=== PATIENT | male | born 1970 | race Caucasian/White ===

== ENCOUNTER 2017-02-10 19:45 | Emergency (ER) | payer BC ==
[~2017-02-10] VITALS: Ht 188 cm; Wt 98.0 kg
[~2017-02-10 19:45] MED LIST: ATOR10TA88 PO; CALCTAB5 PO; GLUCTAB7 PO; OMEG10007 PO; PREG200C PO; TRAM-10 PO
[2017-02-10 19:50] VITALS: TEMP 37; Ht 188 cm; Wt 98.0 kg
[2017-02-10] MEDS ORDERED: PREG1CAP70 PO (20:22)
[2017-02-10] MEDS ORDERED: CALCTAB7 PO (20:22)
[2017-02-10] MEDS ORDERED: DULO-24 PO (20:22)
--- NOTE | 2017-02-10 20:57 | DIAGNOSTIC IMAGING REPORT ---
LEFT FINGER(S) MIN 2 VIEWS ROUTINE CLINICAL HISTORY: left 3rd finger trauma COMPARISON: None. DISCUSSION: Comminuted fracture mid and distal tuft left third finger distal phalanx. No evidence dislocation. Localized soft tissue edema IMPRESSION: Comminuted fracture distal phalanx left third finger. No evidence dislocation. Electronically signed by: Michele Plata M.D. 02/10/2017 8:56 PM Dictated Date/Time: 02/10/2017 8:55 PM
[2017-02-10] MEDS ORDERED: DIPHTHERIA/TETANUS/PERTUSSIS 0.5 ML SYR/VIAL IM. ONE (21:00)
[2017-02-10] MEDS ORDERED: XYLOCAINE 1%/SOD BICARB 20 ML VIAL INFIL ONE (21:27)
[2017-02-10] MEDS ORDERED: CEPHALEXIN 500MG HOME PACK 1 EA BTL PO ONE (22:00)
[2017-02-10] MEDS ORDERED: CEPH500C2 PO (23:02)
[2017-02-10 23:16] VITALS: BP 123/79; PULSE 55; O2SAT 95
--- NOTE | 2017-02-11 05:52 | EMERGENCY ROOM VISIT NOTE ---
ED Visit Note First contact with patient: 21:52 CHIEF COMPLAINT: Finger laceration HISTORY OF PRESENT ILLNESS: This 46 yo patient presents to the emergency department after cutting the left middle finger in the striker off and injuring the nail. The bleeding has not stopped. Denies weakness or numbness of the finger. The patient has full range of motion of the fingers. The patient rates the pain as throbbing and 5/10. The patient denies any other injuries. The patient's tetanus shot is not up to date. REVIEW OF SYSTEMS: A 6 system review of systems was completed with positives and pertinent negatives listed in the HPI. ALLERGIES: Celebrex MEDICATIONS: Reviewed PMH: Chronic pain, hyperlipidemia SOCIAL HISTORY: No drug use PHYSICAL EXAM: Vital Signs: Reviewed Nurse's notes, vital signs stable. GENERAL : Pleasant male, in no acute distress, well developed, well nourished. SKIN: There is a 2.6 cm long laceration on the distal asked that of the left finger involving the nail and the nail bed . The edges gape apart with traction. There is no foreign material in the wound and it looks clean. There is bleeding. The bone is visible on clinical exam. Extension and flexion of the finger is full and strong. Full range of motion of the wrist and other fingers. Capillary refill less than 2 seconds. Normal sensation to light and sharp touch. EMERGENCY DEPARTMENT COURSE: I examined the patient. LEFT FINGER(S) MIN 2 VIEWS ROUTINE CLINICAL HISTORY: left 3rd finger trauma COMPARISON: None. DISCUSSION: Comminuted fracture mid and distal tuft left third finger distal phalanx. No evidence dislocation. Localized soft tissue edema IMPRESSION: Comminuted fracture distal phalanx left third finger. No evidence dislocation. Electronically signed by: Michele Plata M.D. Using sterile technique the wound was cleansed with Betadine. 2 ml of 1% buffered lidocaine was used to perform a digital block to anesthetize the patient. The area was sterilely draped. Once the patient was anesthetized, the wound was copiously irrigated under pressure with sterile saline. The wound was explored and there were no deep structures injured. The nail was shattered and mostly already removed. The nail was trimmed and The laceration was repaired using 8 simple interrupted 5-0 nylon sutures. The patient tolerated the procedure well. Hemostasis was achieved. The nail bed was kept open. Splint was applied and neurovascular status was rechecked after placement and is intact. The area was cleaned with sterile saline and dressed with bacitracin ointment and bandage. The patient was given a tetanus booster. Patient was advised to follow-up with the hand surgeon tomorrow or here in the ER sooner for severe pain, numbness, tingling, worsening signs or symptoms or as needed. He was started on antibiotics for open fracture. The patient was discharged home in good condition. DIAGNOSIS: Finger laceration with open fracture involving the nailbed of the left hand third finger DISCHARGE INSTRUCTIONS & TREATMENT: as above Current/Historical Medications Scheduled Atorvastatin (Lipitor), 10 MG PO DAILY Calcium Carbonate-Vitamin D W/ (Caltrate 600 Plus), 1 TAB PO DAILY Cephalexin Monohydrate (Keflex), 500 MG PO QID Duloxetine HCl (Cymbalta), 1 TAB PO DAILY Fish Oil (Ambia-3), 1 CAP PO DAILY Fghinftzfio-Tvekrzvojuh-Wpv C- (Glucosamine Chondroitin), 1 TAB PO DAILY Pregabalin (Lyrica), 150 MG PO BID Scheduled PRN Tramadol (Ultram), 100 MG PO BID PRN for Pain Allergies Coded Allergies: Celecoxib (Verified Allergy, Unknown, RASH AND HIVES ON ARMS, 02/10/17) Vital Signs Date Time Temp Pulse Resp B/P Pulse Ox O2 Delivery O2 Flow Rate FiO2 02/10/17 23:16 55 16 123/79 95 Room Air 02/10/17 19:50 37.0 62 20 144/87 98 Room Air Medications Administered Medications (Trade) Dose Ordered Sig/Janett Route Start Time Stop Time Status Last Admin Dose Admin Diphtheria/ Pertussis/Tetanus Vacc (Adacel Inj) 0.5 ml ONCE ONCE IM. 02/10/17 21:00 02/10/17 21:01 DC 02/10/17 21:06 0.5 ML Cephalexin Monohydrate (Keflex 500MG Home Pack) 1 homepack NOW ONCE PO 02/10/17 22:00 02/10/17 22:01 DC 02/10/17 22:02 1 HOMEPACK Departure Information Impression Primary Impression: Laceration of finger of left hand Additional Impressions: Nailbed laceration, finger Open fracture of finger of left hand Dispostion Home / Self-Care Condition FAIR Prescriptions Cephalexin Monohydrate (KEFLEX) 500 Mg Cap 500 MG PO QID for 9 Days, #36 CAP Prov: Rodolfo, Lexis .HALEY 02/10/17 Referrals Maikol Negron MD Forms HOME CARE DOCUMENTATION FORM, Work Instructions, Return To Work: 2 days IMPORTANT VISIT INFORMATION Patient Instructions My [facility], ED Fx Finger Open, ED Laceration All, ED Avulsion Nail Partial Additional Instructions Keep wound clean and dry. Do not allow any crusting or dried blood to accumulate on sutures. If this occurs, use a 1:1 solution of hydrogen peroxide/ water on a Q-tip to clean the wound. Use an antibiotic ointment for 3-4 days, then let wound dry. Suture removal in 10-12 days. Return sooner for any signs of infection (increasing redness, swelling, drainage). Ice and elevate for swelling and pain. Ibuprofen 600 mg and Tylenol 1000 mg every 6 hrs for pain. Keep covered when in sun until sutures removed then SPF 50 or higher for one year. Vitamin E oil if desired two weeks after suture removal for reduction of scar Cephalexin(Keflex) 500mg: Take one pill four times daily for 10 days. All antibiotics can cause diarrhea. If this occurs and you feel worse or it does not resolve in 1-2 days follow up with your doctor or return to the Emergency Department as this could be signs of serious underlying problems. Any medication can cause an allergic reaction, stop the pills immediately and return to the ER for rash, hives, breathing difficulties, or swelling. Ibuprofen(Motrin, Advil) may be used for fever or pain. Use 600mg every six hours as needed. Take with food. Avoid using more than 2400mg in a 24 hour period. Do not use 2400mg per day for more than three consecutive days without physician direction. Prolonged inappropriate use can lead to stomach upset or ulcers. This medication can be taken if you need to drive, work, or perform activities which may be dangerous when taking narcotic pain medication. (AND/OR) Acetaminophen(Tylenol) may be used for fever or pain. Use 1000mg every six hours as needed. Avoid using more than 3000mg in a 24 hour period. This medication can be taken if you need to drive, work, or perform activities which may be dangerous when taking narcotic pain medication. Rest and elevate your injury. Wear finger splint daily. Remove this when you take a shower along with the bacitracin and bandage and evaluate your wound. Dry this off after the shower and reapply bacitracin, bandage and splint as shown in the ER. Continue current medications. Return to the ER immediately for any numbness, tingling, severe pain, extreme swelling in the extremity or as needed. Call Orthopedics tomorrow to arrange follow up for your injury. Work Instructions Return To Work: 2 days Problem Qualifiers
== END 2017-02-10 23:28 | disposition home or self-care (01) ==
LOC: C.EDB 19:46 → C.EDD 23:28
DX: S61.313A Laceration without foreign body of left middle finger with damage to nail, initial encounter (principal); S62.633B Displaced fracture of distal phalanx of left middle finger, initial encounter for open fracture; W29.0XXA Contact with powered kitchen appliance, initial encounter; Z23 Encounter for immunization

== ENCOUNTER → 2018-07-18 | Outpatient (CLI) | payer OTHER ==
[~2018-07-18] MED LIST changes: +ATOR10TA82 PO; -ATOR10TA88 PO; -CALCTAB5 PO; +DULO-24 PO; -GLUCTAB7 PO; -OMEG10007 PO; +PREG1CAP70 PO; -PREG200C PO; -TRAM-10 PO
[2018-07-18 20:38] LABS: BASO % 0.5 %; BASO ABS # 0.04 K/uL (0-0.2); EOS % 2.2 %; EOS ABS # 0.18 K/uL (0-0.5); HEMATOCRIT 48.9 % (42-52); HEMOGLOBIN 16.5 g/dL (14.0-18.0); IG# 0.01 K/uL (0.00-0.02); LYMPH % 26.3 %; LYMPH ABS # 2.14 K/uL (1.2-3.4); MEAN CELL VOLUME 88.4 fL (80-100); MEAN CORPUSCULAR HEMOGLOBIN 29.8 pg (25-34); MEAN CORPUSCULAR HGB CONC 33.7 g/dl (32-36); MEAN PLATELET VOLUME 12.2 fL (7.4-10.4); MONO % 7.6 %; MONO ABS # 0.62 K/uL (0.11-0.59); NEUT % 63.3 %; NEUT ABS # 5.15 K/uL (1.4-6.5); PLATELET COUNT 155 K/uL (130-400); RED CELL DISTRIBUTION WIDTH CV 13.7 % (11.5-14.5); RED CELL DISTRIBUTION WIDTH SD 44.3 fL (36.4-46.3); WHITE BLOOD COUNT 8.14 K/uL (4.8-10.8)
== END | disposition home or self-care (01) ==
LOC: C.LAB 19:18
PROVIDERS: ATTEND Nurse Practitioner
DX: R53.83 Other fatigue (principal)

== ENCOUNTER 2021-03-27 15:08 | Observation (INO) ==
[2021-03-27] MEDS ORDERED: ONDANSETRON INJ 2 MG/ML 2 ML VIAL IV STA (15:37)
[2021-03-27] MEDS ORDERED: MoRPHine SULFATE 4 MG/ML 1 ML CARP\\VIAL IV STA ×3 (15:37→18:55)
--- NOTE | 2021-03-27 15:45 | Emergency Department Note ---
History of Present Illness General Chief complaint: Hip Pain Stated complaint: HIP PAIN, CAN'T WALK Time Seen by Provider: 03/27/21 15:20 History of Present Illness Maximum Pain Intensity: 9 This is a 51-year-old male that presents to the emergency department via private vehicle with complaints "hip pain, cannot walk". The patient notes a history of low back pain that is generally on the left side however over the past 6 to 8 weeks has been experiencing right sided gluteal pain that radiates down the right posterior lateral aspect of the right leg to the right calf region. He describes the pain as a numbness/tingling sensation in the right leg. He describes it as a numbness/tingling. He has been taking Tylenol without relief. He reached out to Dr. Mondragon and is scheduled to have an injection to the area this coming Saturday. Patient notes that this past Saturday his pain sharply increased to a point where it is now that is a 9/10. He notes he cannot ambulate even short distances without great deal of pain. The patient denies any history of spine surgeries. He has had injections at the L5 region before. Per review of past medical history does appear that on 04/06/2019 secondary to L5 radiculopathy underwent right paramedian L5-L1 intralaminar epidural steroid i njection under fluoroscopy by Dr. Mondragon. Patient denies any fevers, chills, nausea, vomiting, chest pain or shortness of breath. He does feel that there is weakness in the right leg. He denies any bowel or bladder incontinence, numbness or tingling in the genital region. No reported recent trauma or injury. Pain is worse with movement. Home Medications Medication Instructions Recorded Confirmed Type Lyrica 25 mg PO BID 03/10/19 03/10/19 History Lyrica 100 mg PO BID 03/10/19 03/10/19 History atorvastatin 10 mg PO QAM 03/10/19 03/10/19 History duloxetine [Cymbalta] 20 mg PO QAM 03/10/19 03/10/19 History oxycodone [Roxicodone] 5 mg PO Q4H #18 tab 03/27/21 Rx Allergies Allergy/AdvReac Type Severity Reaction Status Date / Time celecoxib Allergy Unknown RASH AND Verified 04/06/19 13:18 HIVES ON ARMS Past Med/Surg History Medical History Chronic back pain Degenerative disc disease Hip pain Hyperlipidemia Sleep apnea CPAP Surgical History History of arthroscopy LEFT HIP Hx of oral surgery SOMNOPLASTY S/P epidural steroid injection MULTIPLE Social History Smoking Status: Never smoker Second Hand Exposure: No; Hx Alcohol Use: No Hx Substance Use: No Preferred Language: Gambian Communication Ability: Effective Sample Maker Hand Required: No Beliefs That Will Affect Care: None Current Living Situation: Alone Feels Safe at Home: Yes Assistive Devices: CPAP and Glasses Review of Systems A total of 10 systems reviewed and were otherwise negative Physical Exam Vital Signs Vital Signs - 24 hr 03/27/21 15:16 03/27/21 17:00 03/27/21 19:46 Temperature 36.7 C Temperature Source Temporal Artery Scan Pulse Rate 74 Pulse Rate [Right Finger] 64 61 Respiratory Rate 18 20 18 Respiratory Effort / Characteristics Non-Labored Respiratory Depth Normal Blood Pressure 133/88 Blood Pressure [Right Arm] 123/77 134/89 Blood Pressure Mean 103 Blood Pressure Mean [Right Arm] 92 104 Pulse Oximetry 97 96 96 Oxygen Delivery Method Room Air Room Air Room Air Sepsis Recent Fever Within 48 Hours No Sepsis New/Unexplained Change in Mental Status No Sepsis Action Taken by Nursing No Action Required 03/27/21 21:06 Temperature Temperature Source Pulse Rate Pulse Rate [Right Finger] 69 Respiratory Rate 18 Respiratory Effort / Characteristics Respiratory Depth Blood Pressure Blood Pressure [Right Arm] 117/68 Blood Pressure Mean Blood Pressure Mean [Right Arm] 84 Pulse Oximetry 97 Oxygen Delivery Method Room Air Sepsis Recent Fever Within 48 Hours Sepsis New/Unexplained Change in Mental Status Sepsis Action Taken by Nursing VITAL SIGNS - Vital signs and nursing notes were reviewed. Stable and afebrile. GENERAL -51-year-old male appearing his stated age who is in no acute distress but appears to be in pain. Communicates well with provider and answers questions appropriately. SKIN - Without rashes. No meningeal or petechial rash. HEAD - NC/AT. EYES - PERRL with EOMI bilaterally. Sclera anicteric. Palpebral conjunctiva pink and moist with no injection noted. EARS - No deformities of external structures noted on gross examination bilaterally. NOSE - Midline and without cyanosis. No epistaxis or purulent drainage noted. MOUTH/OROPHARYNX - Without perioral cyanosis. NECK - Neck with FROM. No nuchal rigidity. LUNGS - Chest wall symmetric without accessory muscle use, intercostals retractions, or central cyanosis. Normal vesicular breath sounds CTA B/L. No wheezes, rales, or rhonchi appreciated. CARDIAC - RRR with S1/S2. No murmur, rubs, or gallops appreciated. ABDOMEN - Abdominal contour normal without pulsations or visible masses. BS normoactive all four quadrants. No tenderness, palpable masses, hepatosplenomegaly, or ascites noted. EXTREMITIES - No clubbing or peripheral cyanosis. No pretibial edema present. Ambulatory trial noted that the patient is able to stand however cannot ambulate without assistance and does seem to be unstable on the right leg. +5/5 strength noted in UE/LE bilaterally. NEUROLOGIC - Cranial nerves II through XII grossly intact. Sensory intact to lig ht touch throughout. PSYCH - A&Ox3 and cooperates fully with examiner. Pt is very pleasant and inte racts well with examiner. Course Administered Medications Discontinued Medications Dexamethasone Sodium Phosphate (DexamethasonePf 10 Mg/Ml Vial) 10 mg IV NOW ONE Stop: 03/27/21 18:03 Last Admin: 03/27/21 18:07 Dose: 10 mg Documented by: [id number] Lidocaine (Lidocaine 5% 1 Patch) 1 patch TD NOW STA Stop: 03/27/21 16:19 Last Admin: 03/27/21 17:10 Dose: 1 patch Documented by: [id number] Morphine Sulfate (Morphine Sulfate 4 Mg/Ml 1 Ml Carp\\Vial) 4 mg IV NOW STA Stop: 03/27/21 15:38 Last Admin: 03/27/21 15:59 Dose: 4 mg Documented by: [id number] Morphine Sulfate (Morphine Sulfate 4 Mg/Ml 1 Ml Carp\\Vial) 4 mg IV NOW STA Stop: 03/27/21 16:21 Last Admin: 03/27/21 17:05 Dose: 4 mg Documented by: [id number] Morphine Sulfate (Morphine Sulfate 4 Mg/Ml 1 Ml Carp\\Vial) 4 mg IV NOW STA Stop: 03/27/21 18:56 Last Admin: 03/27/21 19:24 Dose: 4 mg Documented by: [id number] Ondansetron HCl (Ondansetron Inj 2 Mg/Ml 2 Ml Vial) 4 mg IV NOW STA Stop: 03/27/21 15:38 Last Admin: 03/27/21 15:59 Dose: 4 mg Documented by: [id number] Medical Decision Making Laboratory Data Result diagrams: 03/27/21 15:50 03/27/21 15:50 Lab Results 03/27/21 03/27/21 03/27/21 Range/Units 15:50 15:50 19:25 WBC 7.82 (4.8-10.8) K/uL RBC 5.42 (4.7-6.1) M/uL Hgb 16.6 (14.0-18.0) g/dL Hct 47.7 (42-52) % MCV 88.0 (80-100) fL MCH 30.6 (25-34) pg MCHC 34.8 (32-36) g/dL RDW Std Deviation 42.2 (36.4-46.3) fL RDW Coeff of Naty 13.1 (11.5-14.5) % Plt Count 195 (130-400) K/uL MPV 12.0 H (7.4-10.4) fL Immature Gran % (Auto) 0.1 % Neut % (Auto) 70.0 % Lymph % (Auto) 20.1 % Bergen % (Auto) 8.7 % Eos % (Auto) 0.6 % Baso % (Auto) 0.5 % Neut # (Auto) 5.47 (1.4-6.5) K/uL Lymph # (Auto) 1.57 (1.2-3.4) K/uL Bergen # (Auto) 0.68 H (0.11-0.59) K/uL Eos # (Auto) 0.05 (0-0.5) K/uL Baso # (Auto) 0.04 (0-0.2) K/uL Immature Gran # (Auto) 0.01 (0.00-0.02) K/uL Sodium 143 (136-145) mmol/L Potassium 3.8 (3.5-5.1) mmol/L Chloride 110 H (98-107) mmol/L Carbon Dioxide 29 (21-32) mmol/L Anion Gap 4.0 (3-11) BUN 11 (7-18) mg/dl Creatinine 1.07 (0.6-1.4) mg/dl Est Cr Clr Drug Dosing 97.1 ml/min Est GFR ( Amer) 94.0 Est GFR (Non-Af Amer) 81.1 BUN/Creatinine Ratio 10.7 (10-20) Glucose 102 H (70-99) mg/dl Calcium 9.0 (8.5-10.1) mg/dl Total Bilirubin 0.9 (0.2-1) mg/dl AST 22 (15-37) U/L ALT 35 (12-78) U/L Alkaline Phosphatase 49 (45-117) U/L Total Protein 7.1 (6.4-8.2) gm/dl Albumin 4.1 (3.4-5.0) gm/dl Globulin 3.0 (2.5-4.0) gm/dl Albumin/Globulin Ratio 1.4 (0.9-2) COVID-19 Eval Order CovFluRsv at [facility] SARS-CoV-2 (PCR) (Negative) Influenza Type A (PCR) (Neg) Influenza Type B (PCR) (Neg) RSV (RT-PCR) (Neg) 03/27/21 Range/Units 19:25 WBC (4.8-10.8) K/uL RBC (4.7-6.1) M/uL Hgb (14.0-18.0) g/dL Hct (42-52) % MCV (80-100) fL MCH (25-34) pg MCHC (32-36) g/dL RDW Std Deviation (36.4-46.3) fL RDW Coeff of Naty (11.5-14.5) % Plt Count (130-400) K/uL MPV (7.4-10.4) fL Immature Gran % (Auto) % Neut % (Auto) % Lymph % (Auto) % Bergen % (Auto) % Eos % (Auto) % Baso % (Auto) % Neut # (Auto) (1.4-6.5) K/uL Lymph # (Auto) (1.2-3.4) K/uL Bergen # (Auto) (0.11-0.59) K/uL Eos # (Auto) (0-0.5) K/uL Baso # (Auto) (0-0.2) K/uL Immature Gran # (Auto) (0.00-0.02) K/uL Sodium (136-145) mmol/L Potassium (3.5-5.1) mmol/L Chloride (98-107) mmol/L Carbon Dioxide (21-32) mmol/L Anion Gap (3-11) BUN (7-18) mg/dl Creatinine (0.6-1.4) mg/dl Est Cr Clr Drug Dosing ml/min Est GFR ( Amer) Est GFR (Non-Af Amer) BUN/Creatinine Ratio (10-20) Glucose (70-99) mg/dl Calcium (8.5-10.1) mg/dl Total Bilirubin (0.2-1) mg/dl AST (15-37) U/L ALT (12-78) U/L Alkaline Phosphatase (45-117) U/L Total Protein (6.4-8.2) gm/dl Albumin (3.4-5.0) gm/dl Globulin (2.5-4.0) gm/dl Albumin/Globulin Ratio (0.9-2) COVID-19 Eval Order SARS-CoV-2 (PCR) NEGATIVE (Negative) Influenza Type A (PCR) Negative (Neg) Influenza Type B (PCR) Negative (Neg) RSV (RT-PCR) Negative (Neg) Imaging Data Radiologist's Impression: Lumbar Spine MRI 03/27/21 15:37 MRI OF THE LUMBAR SPINE WITHOUT IV CONTRAST CLINICAL HISTORY: Chronic low back pain. Right lower extremity radiculopathy. COMPARISON STUDY: Radiographs of the lumbar spine dated 04/23/2012. MRI of the lumbar spine dated 02/05/2014. TECHNIQUE: MRI of the lumbar spine is performed utilizing various T1 and T2-we ighted sequences in the axial and sagittal planes. IV contrast was not administered for this examination. FINDINGS: Lumbar spine: Vertebral body height and alignment are maintained throughout the lumbar spine. There is straightening of the lumbar lordosis. The transverse and spinous processes appear intact. There is no evidence of spondylolysis. Small anterior and lateral marginal osteophytes are seen throughout. No destructive bony lesion is seen. Chronic degenerative endplate change and endplate edema are noted at L4-L5. Intervertebral discs: Degenerative disc desiccation and loss of height are noted at L4-L5 and L5-S1. Loss of height is moderate to severe at L4-L5. The remaining discs are normal in height and signal intensity. Spinal cord: The visualized spinal cord is normal in morphology and signal intensity. The conus medullaris terminates at the level of L1. The nerve roots of the cauda equina are normal in morphology. L1-L2: Unremarkable. L2-L3: Unremarkable. L3-L4: Unremarkable. L4-L5: There is broad-based posterior disc bulge. No acquired compromise of the central canal is identified. There is bilateral subarticular stenosis, left greater than right. This may abut the exiting bilateral L4 nerve roots as well as the transiting bilateral nerve roots. In conjunction with facet arthropathy, there is mild bilateral neural foraminal stenosis. L5-S1: There is a posterior disc herniation eccentric to the right, best seen on axial image #23 and sagittal image #8. This impinges on the transiting right- sided nerve roots as well as the right anterior aspect of the thecal sac. There is bilateral subarticular stenosis, right greater than left. This may abut the exiting bilateral L5 nerve roots. Facet arthropathy contributes to mild bilatera l neural foraminal stenosis. Sacrum: The visualized sacrum is normal in morphology and signal intensity. Soft tissues: The paraspinous soft tissues are normal as visualized. The imaged retroperitoneal structures are grossly unremarkable but incompletely assessed. IMPRESSION: 1. There is a disc herniation eccentric to the right at L5-S1. This impinges on the transiting right-sided nerve roots, and also mildly effaces the right anterior aspect of the thecal sac. 2. Moderate spondylotic change at L4-L5. See above discussion for detailed level by level analysis. 3. Degenerative disc disease as above with significant endplate edema at L4-L5. 4. No destructive bony lesion is identified. Dictated: 03/27/2021 5:03 PM Transcribed: 03/27/2021 5:22 PM Zoila [id number] [email or web address] Electronically signed by: Elias Lyon M.D. 03/27/2021 5:24 PM [facility] Narrative Patient was seen and evaluated as above in room D06. Review was performed of nursing notes and vital signs. I did review pertinent previous visits and patient history. After obtaining a thorough history and physical examination the above work up was performed. Patient presents to us today with right posterior lateral gluteal discomfort that extends into the right posterior lateral calf region. It is worse with movement. Patient has an established history of back pain and has received steroid injections before. The patient does not have any tenderness overlying the right greater trochanter or at the hip regions. Presentation appears consistent without a right-sided lumbar radiculopathy. No evidence of cauda equina syndrome. An ambulatory trial was performed on arrival as I was examining the patient and he is not able to ambulate without assistance. With the patient's symptoms and physical examination as outlined above benefit versus risk of work-up and imaging was discussed. Through shared decision making we agreed to proceed with an MRI of the L-spine given his inability to ambulate and numbness/tingling in the right leg. In addition, the patient has found little relief with OTC pain medication and therefore will be given IV pain meds here while awaiting imaging. MRI results as above. This does clinically correlate with the patient's exam findings and history. I did feel that the patient would benefit from outpatient follow-up with a photo lab specialist. I discussed options with the patient and we agreed upon an IV dexamethasone dose here, and then discharged with p.o. oxycodone at the pharmacy. I was then called back to the room by the nurse as the patient was having trouble ambulating. Upon return to the room the patient voiced concern over being able to ambulate. I did have the patient attempt to ambulate upon reassessment and he did have a great deal of pain upon attempting to do so. We discussed options such as continuing with discharge and utilizing the pain meds at the pharmacy however the person accompanying the patient in the exam room also voiced concern over being able to help the patient ambulate at home. Patient preferred inpatient management which I believe is reasonable. I believe this is reasonable given his ambulatory dysfunction and for pain control . Case discussed with the hospitalist. Please refer to further documentation regarding his stay. Baseline labs were also obtained. No leukocytosis or anemia. No emergent metabolic disturbance. Covid testing pending. At no point did the patient exhibit any sign or symptom consistent with that of cauda equina syndrome. Please refer to further documentation regarding the patient's stay. GCS: 15 In the evaluation and treatment of this patient the following differential diagnosis entertained: Fracture, dislocation, subluxation, cauda equina syndrome, AAA, diverticulitis, appendicitis, torsion, osteomyelitis, piriformis syndrome, strain, sprain, among others. Impression & Plan Acute right lumbar radiculopathy, Ambulatory dysfunction, Intractable back pain Discharge Plan Visit Data Chief Complaint: Hip Pain Stated Complaint: HIP PAIN, CAN'T WALK ED Provider: Daquan Casper ED Midlevel Provider: Caesar Bell Discharge Problem: Acute right lumbar radiculopathy, Ambulatory dysfunction, Intractable back pain Patient Disposition: Admitted As Inpatient Condition: Good Forms Stand Alone Forms: [facility], Virtual Emergency Department, Important Visit Information Prescriptions Prescriptions: New oxycodone [Roxicodone] 5 mg tablet 5 mg PO Q4H Qty: 18 RF: 0 No Action atorvastatin 10 mg Tablet 10 mg PO QAM RF: 0 Lyrica 25 mg Capsule 25 mg PO BID RF: 0 Lyrica 100 mg Capsule 100 mg PO BID RF: 0 duloxetine [Cymbalta] 20 mg Capsule,Delayed Release(Dr/Ec) 20 mg PO QAM RF: 0 Referrals Referrals: Denisha Peoples MD [Physician] - Hawa Whitmore PA-C [Primary Care Provider] -
[2021-03-27] MEDS ORDERED: LIDOCAINE 5% 1 PATCH TD STA (16:18)
--- NOTE | 2021-03-27 17:25 | Magnetic Resonance Report ---
MRI OF THE LUMBAR SPINE WITHOUT IV CONTRAST CLINICAL HISTORY: Chronic low back pain. Right lower extremity radiculopathy. COMPARISON STUDY: Radiographs of the lumbar spine dated 04/23/2012. MRI of the lumbar spine dated 02/05. TECHNIQUE: MRI of the lumbar spine is performed utilizing various T1 and T2-weighted sequences in the axial and sagittal planes. IV contrast was not administered for this examination. FINDINGS: Lumbar spine: Vertebral body height and alignment are maintained throughout the lumbar spine. There i s straightening of the lumbar lordosis. The transverse and spinous processes appear intact. There is no evidence of spondylolysis. Small anterior and lateral marginal osteophytes are seen throughout. No destructive bony lesion is seen. Chronic degenerative endplate change and endplate edema are noted a t L4-L5. Intervertebral discs: Degenerative disc desiccation and loss of height are noted at L4-L5 and L5-S1. Loss of height is moderate to severe at L4-L5. The remaining discs are normal in height and signal in tensity. Spinal cord: The visualized spinal cord is normal in morphology and signal intensity. The conus medul neptali terminates at the level of L1. The nerve roots of the cauda equina are normal in morphology. L1-L2: Unremarkable. L2-L3: Unremarkable. L3-L4: Unremarkable. L4-L5: There is broad-based posterior disc bulge. No acquired compromise of the central canal is iden tified. There is bilateral subarticular stenosis, left greater than right. This may abut the exiting bilateral L4 nerve roots as well as the transiting bilateral nerve roots. In conjunction with facet a rthropathy, there is mild bilateral neural foraminal stenosis. L5-S1: There is a posterior disc herniation eccentric to the right, best seen on axial image #23 and sagittal image #8. This impinges on the transiting right-sided nerve roots as well as the right anter ior aspect of the thecal sac. There is bilateral subarticular stenosis, right greater than left. This may abut the exiting bilateral L5 nerve roots. Facet arthropathy contributes to mild bilateral neura l foraminal stenosis. Sacrum: The visualized sacrum is normal in morphology and signal intensity. Soft tissues: The paraspinous soft tissues are normal as visualized. The imaged retroperitoneal struc tures are grossly unremarkable but incompletely assessed. IMPRESSION: 1. There is a disc herniation eccentric to the right at L5-S1. This impinges on the transiting right- sided nerve roots, and also mildly effaces the right anterior aspect of the thecal sac. 2. Moderate spondylotic change at L4-L5. See above discussion for detailed level by level analysis. 3. Degenerative disc disease as above with significant endplate edema at L4-L5. 4. No destructive bony lesion is identified. Dictated: 03/27/2021 5:03 PM Transcribed: 03/27/2021 5:22 PM Zoila [id number] [facility] Electronically signed by: Elias Lyon M.D. 03/27/2021 5:24 PM
[2021-03-27] MEDS ORDERED: dexAMETHasone**PF** 10 MG/ML VIAL IV ONE (18:02)
[2021-03-27 19:01] LABS: Basophils # (auto) 0.04 K/uL (0-0.2); Basophils % (auto) 0.5 %; Eosinophils # (auto) 0.05 K/uL (0-0.5); Eosinophils % (auto) 0.6 %; Hematocrit (blood only) 47.7 % (42-52); Hemoglobin 16.6 g/dL (14.0-18.0); Immature Granulocytes # (auto) 0.01 K/uL (0.00-0.02); Immature Granulocytes % (auto) 0.1 %; Lymphocytes # (auto) 1.57 K/uL (1.2-3.4); Lymphocytes % (auto) 20.1 %; Mean Corpuscular Hemoglobin 30.6 pg (25-34); Mean Corpuscular Hgb Conc 34.8 g/dL (32-36); Monocytes # (auto) 0.68 K/uL (0.11-0.59); Monocytes % (auto) 8.7 %; Neutrophils # (auto) 5.47 K/uL (1.4-6.5); Platelet Count 195 K/uL (130-400); RDW Coefficient of Variation 13.1 % (11.5-14.5); RDW Standard Deviation 42.2 fL (36.4-46.3); Red Blood Count 5.42 M/uL (4.7-6.1); White Blood Count 7.82 K/uL (4.8-10.8)
[2021-03-27 19:08] LABS: Albumin Level 4.1 gm/dl (3.4-5.0); BUN Creatinine Ratio 10.7 (10-20); Creatinine Clr Calc Pharmacy 97.1 ml/min; Est GFR (Non-African American) 81.1; Potassium 3.8 mmol/L (3.5-5.1)
[2021-03-27 19:11] LABS: Albumin Globulin Ratio 1.4 (0.9-2); Bilirubin,Total 0.9 mg/dl (0.2-1); Total Protein 7.1 gm/dl (6.4-8.2)
[2021-03-27] MEDS ORDERED: PREGABALIN 100 MG CAP PO STA (20:29)
--- NOTE | 2021-03-27 20:30 | History & Physical Report ---
Date of Service March 27, 2021 Assessment & Plan (1) Acute right lumbar radiculopathy: 51yo C male with 6-8 weeks of intermittent right buttock pain with acute worsening on 03/25/21, now in severe discomfort, unable to ambulate due to pain. Patient is neurologically intact, no cauda/equina/bowel or bladder involvement. MRI with disc herniation at L5-S1 impinging on right sided nerve roots. -Observation to medical -Patient given Dexamethasone 10mg IV in ER - will continue with PO prednisone 6 0mg -Tylenol q 8 hours. Will avoid NSAIDs due to prior allergy to Celecoxib. Patient states that topical Lidoderm, Voltaren do not work for him -Continue Cymbalta and Lyrica -Percocet 5mg po q 4 hours -Consider Pain Management consultation for epidural injection -Fall precautions -PT/OT evaluation Present on Admission?: Yes (2) Ambulatory dysfunction: As above, secondary to acute lumbar radiculopathy -Prednisone, Tylenol, Percocet as above -PT/OT evaluation Present on Admission?: Yes (3) Hyperlipidemia: Chronic -Continue Crestor Present on Admission?: Yes (4) Sleep apnea: Chronic -CPAP 6 cm H2O. Patient may use his own device F/E/N - Heplock. Electrolytes WNL. Regular diet as tolerated Ppx - Low risk for DVT Code - Full Present on Admission?: Yes History of Present Illness Chief Complaint: Back pain, inability to walk Primary Care Provider: Hawa Whitmore PA-C Jl Amado is a 51yo male presenting with acute back pain. Patient has a longstanding history of chronic back pain. His chronic pain is typically located on the left which is managed well with Cymbalta, Lyrica. He has had acute L5-S1 radiculopathy in the past requiring occasional epidural steroid injections (last on record 04/06/[address] Slim Mondragon and 05/26/18 prior to that). Patient is scheduled to have another steroid injection performed on by Dr. Langford. He reports good pain control following steroid injections. Patient noticed intermittent pain the right buttock in December. This pain acutely worsened on 03/25/21 with radiation down posterior lateral portion of right thigh to leg. +Numbness/tingling sensation in the right leg as well. He took some Tylenol with no relief. Yesterday the pain was "unbearable" to the point that he was unable to ambulate. He was unable to get comfortable at night, couldn't sleep or move. He contacted Dr. Mondragon's office and was instructed to seek emergency care if his pain could not be controlled with Tylenol. Upon arrival to the ER he was administered Dexamethasone as well as Morphine 4mg IV x 3 doses with minimal improvement in his discomfort. During his ambulatory trial in the ER he was unable to bear weight or walk. 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 Patient denies bowel or bladder incontinence. ER Course: Dexamethasone, Lidoderm, Morphine, Zofran Allergies Allergy/AdvReac Type Severity Reaction Status Date / Time celecoxib Allergy Unknown RASH AND Verified 04/06/19 13:18 HIVES ON ARMS Home Medications Medication Instructions Recorded Confirmed Type Lyrica 25 mg PO BID 03/10/19 03/10/19 History atorvastatin 10 mg PO QAM 03/10/19 03/27/21 History duloxetine [Cymbalta] 20 mg PO QAM 03/10/19 03/27/21 History pregabalin [Lyrica] 100 mg PO BID 03/10/19 03/27/21 History oxycodone [Roxicodone] 5 mg PO Q4H #18 tab 03/27/21 Rx Past Med/Surg History Medical History Chronic back pain Degenerative disc disease Hip pain Hyperlipidemia Sleep apnea CPAP Surgical History History of arthroscopy LEFT HIP Hx of oral surgery SOMNOPLASTY S/P epidural steroid injection MULTIPLE Social History Smoking Status: Never smoker Second Hand Exposure: No; Do You Dip or Chew Tobacco: No; Hx Alcohol Use: No Hx Substance Use: No Preferred Language: Welsh Communication Ability: Effective Clinical Technologist Required: No Beliefs That Will Affect Care: None Current Living Situation: Alone Feels Safe at Home: Yes Safety Concerns: Feels Safe At This Time Assistive Devices: CPAP Assistive Devices Comment: Back pain Review of Systems Review of Systems: All systems reviewed & are unremarkable except as noted in HPI & below Physical Exam Physical Exam: General: patient resting comfortably in supine position, NAD, non-toxic in appearance, AA&O x 4 Skin: warm, dry, intact, no rashes or lesions HEENT: NC/AT, PERRL, EOMI, anicteric sclera, conjunctiva without injection, external ear normal to inspection and nontender, nares patent, moist mucus membranes, dentition intact, no oropharyngeal lesions, neck supple, trachea midline, no LAD, no thyromegaly, no JVD Heart: +S1/S2, regular, no m/r/g Lungs: equal air entry bilaterally, no rales/rhonchi/wheezes Abd: +BS, soft, NT/ND, no masses/organomegaly/ascites Ext: warm, 2+ pulses in UE/LE bilaterally, no clubbing/cyanosis or edema Neuro: nonfocal, patient AA&O x 4, speech intact, no facial droop, moving all extremities on command with equal strength 5/5, LE reflexes intact, +straight leg test on right Results & Data Results & Data ([facility]) Vital Signs (Past 12 Hours) Vital Signs Temp Pulse Pulse Resp BP BP Pulse Ox 03/27/21 19:46 61 18 134/89 96 03/27/21 17:00 64 20 123/77 96 03/27/21 15:16 36.7 C 74 18 133/88 97 Laboratory Results Lab Results 03/27/21 03/27/21 03/27/21 Range/Units 15:50 15:50 19:25 WBC 7.82 (4.8-10.8) K/uL RBC 5.42 (4.7-6.1) M/uL Hgb 16.6 (14.0-18.0) g/dL Hct 47.7 (42-52) % MCV 88.0 (80-100) fL MCH 30.6 (25-34) pg MCHC 34.8 (32-36) g/dL RDW Std Deviation 42.2 (36.4-46.3) fL RDW Coeff of Naty 13.1 (11.5-14.5) % Plt Count 195 (130-400) K/uL MPV 12.0 H (7.4-10.4) fL Immature Gran % (Auto) 0.1 % Neut % (Auto) 70.0 % Lymph % (Auto) 20.1 % Boone % (Auto) 8.7 % Eos % (Auto) 0.6 % Baso % (Auto) 0.5 % Neut # (Auto) 5.47 (1.4-6.5) K/uL Lymph # (Auto) 1.57 (1.2-3.4) K/uL Boone # (Auto) 0.68 H (0.11-0.59) K/uL Eos # (Auto) 0.05 (0-0.5) K/uL Baso # (Auto) 0.04 (0-0.2) K/uL Immature Gran # (Auto) 0.01 (0.00-0.02) K/uL Sodium 143 (136-145) mmol/L Potassium 3.8 (3.5-5.1) mmol/L Chloride 110 H (98-107) mmol/L Carbon Dioxide 29 (21-32) mmol/L Anion Gap 4.0 (3-11) BUN 11 (7-18) mg/dl Creatinine 1.07 (0.6-1.4) mg/dl Est Cr Clr Drug Dosing 97.1 ml/min Est GFR ( Amer) 94.0 Est GFR (Non-Af Amer) 81.1 BUN/Creatinine Ratio 10.7 (10-20) Glucose 102 H (70-99) mg/dl Calcium 9.0 (8.5-10.1) mg/dl Total Bilirubin 0.9 (0.2-1) mg/dl AST 22 (15-37) U/L ALT 35 (12-78) U/L Alkaline Phosphatase 49 (45-117) U/L Total Protein 7.1 (6.4-8.2) gm/dl Albumin 4.1 (3.4-5.0) gm/dl Globulin 3.0 (2.5-4.0) gm/dl Albumin/Globulin Ratio 1.4 (0.9-2) COVID-19 Eval Order CovFluRsv at [facility] SARS-CoV-2 (PCR) (Negative) Influenza Type A (PCR) (Neg) Influenza Type B (PCR) (Neg) RSV (RT-PCR) (Neg) 03/27/21 Range/Units 19:25 WBC (4.8-10.8) K/uL RBC (4.7-6.1) M/uL Hgb (14.0-18.0) g/dL Hct (42-52) % MCV (80-100) fL MCH (25-34) pg MCHC (32-36) g/dL RDW Std Deviation (36.4-46.3) fL RDW Coeff of Naty (11.5-14.5) % Plt Count (130-400) K/uL MPV (7.4-10.4) fL Immature Gran % (Auto) % Neut % (Auto) % Lymph % (Auto) % Boone % (Auto) % Eos % (Auto) % Baso % (Auto) % Neut # (Auto) (1.4-6.5) K/uL Lymph # (Auto) (1.2-3.4) K/uL Boone # (Auto) (0.11-0.59) K/uL Eos # (Auto) (0-0.5) K/uL Baso # (Auto) (0-0.2) K/uL Immature Gran # (Auto) (0.00-0.02) K/uL Sodium (136-145) mmol/L Potassium (3.5-5.1) mmol/L Chloride (98-107) mmol/L Carbon Dioxide (21-32) mmol/L Anion Gap (3-11) BUN (7-18) mg/dl Creatinine (0.6-1.4) mg/dl Est Cr Clr Drug Dosing ml/min Est GFR ( Amer) Est GFR (Non-Af Amer) BUN/Creatinine Ratio (10-20) Glucose (70-99) mg/dl Calcium (8.5-10.1) mg/dl Total Bilirubin (0.2-1) mg/dl AST (15-37) U/L ALT (12-78) U/L Alkaline Phosphatase (45-117) U/L Total Protein (6.4-8.2) gm/dl Albumin (3.4-5.0) gm/dl Globulin (2.5-4.0) gm/dl Albumin/Globulin Ratio (0.9-2) COVID-19 Eval Order SARS-CoV-2 (PCR) NEGATIVE (Negative) Influenza Type A (PCR) Negative (Neg) Influenza Type B (PCR) Negative (Neg) RSV (RT-PCR) Negative (Neg) Diagnostic Findings MRI OF THE LUMBAR SPINE WITHOUT IV CONTRAST CLINICAL HISTORY: Chronic low back pain. Right lower extremity radiculopathy. COMPARISON STUDY: Radiographs of the lumbar spine dated 04/23/2012. MRI of the lumbar spine dated 02/05/2014. TECHNIQUE: MRI of the lumbar spine is performed utilizing various T1 and T2- weighted sequences in the axial and sagittal planes. IV contrast was not administered for this examination. FINDINGS: Lumbar spine: Vertebral body height and alignment are maintained throughout the lumbar spine. There is straightening of the lumbar lordosis. The transverse and spinous processes appear intact. There is no evidence of spondylolysis. Small anterior and lateral marginal osteophytes are seen throughout. No destructive bony lesion is seen. Chronic degenerative endplate change and endplate edema are noted at L4-L5. Intervertebral discs: Degenerative disc desiccation and loss of height are noted at L4-L5 and L5-S1. Loss of height is moderate to severe at L4-L5. The remaining discs are normal in height and signal intensity. Spinal cord: The visualized spinal cord is normal in morphology and signal intensity. The conus medullaris terminates at the level of L1. The nerve roots of the cauda equina are normal in morphology. L1-L2: Unremarkable. L2-L3: Unremarkable. L3-L4: Unremarkable. L4-L5: There is broad-based posterior disc bulge. No acquired compromise of the central canal is identified. There is bilateral subarticular stenosis, left greater than right. This may abut the exiting bilateral L4 nerve roots as well as the transiting bilateral nerve roots. In conjunction with facet arthropathy, there is mild bilateral neural foraminal stenosis. L5-S1: There is a posterior disc herniation eccentric to the right, best seen on axial image #23 and sagittal image #8. This impinges on the transiting right- sided nerve roots as well as the right anterior aspect of the thecal sac. There is bilateral subarticular stenosis, right greater than left. This may abut the exiting bilateral L5 nerve roots. Facet arthropathy contributes to mild bilateral neural foraminal stenosis. Sacrum: The visualized sacrum is normal in morphology and signal intensity. Soft tissues: The paraspinous soft tissues are normal as visualized. The imaged retroperitoneal structures are grossly unremarkable but incompletely assessed. IMPRESSION: 1. There is a disc herniation eccentric to the right at L5-S1. This impinges on the transiting right-sided nerve roots, and also mildly effaces the right anterior aspect of the thecal sac. 2. Moderate spondylotic change at L4-L5. See above discussion for detailed level by level analysis. 3. Degenerative disc disease as above with significant endplate edema at L4-L5. 4. No destructive bony lesion is identified. Dictated: 03/27/2021 5:03 PM Transcribed: 03/27/2021 5:22 PM Zoila [id number] [facility] Electronically signed by: Elias Lyon M.D. 03/27/2021 5:24 PM Dictated: 03/27/21 1703Transcribed: 03/27/21 1722 PG Care Time/CCT Total # of Minutes Spent Total Time Spent with Patient: Total time spent is greater than 50% in coordination of care (as documented) at patient's floor/unit and/or counseling patient: Coding Level of Care Code 02063 OBS Care - Level 3 Diagnoses Acute right lumbar radiculopathy M54.16 Ambulatory dysfunction R26.2 Hyperlipidemia E78.5 Hyperlipidemia type: unspecified Sleep apnea G47.30 Sleep apnea type: unspecified type (1) Hyperlipidemia Hyperlipidemia type: unspecified Qualified Code(s): E78.5 - Hyperlipidemia, unspecified (2) Sleep apnea Sleep apnea type: unspecified type Qualified Code(s): G47.30 - Sleep apnea, unspecified
[2021-03-27 20:34] LABS: Influenza A virus by PCR Negative (Neg); Influenza B virus by PCR Negative (Neg); RSV by PCR Negative (Neg); SARS CoV2 RNA(COVID-19) InHosp NEGATIVE (Negative)
[2021-03-27] MEDS ORDERED: DICLOFENAC SOD 1% GEL 100 GM TUBE EXT SCH (22:00)
[2021-03-27] MEDS: oxyCODONE HCL IR 5 MG TAB (IMMEDIATE RELEASE) PO PRN (23:08)
[2021-03-27] MEDS: PREGABALIN 100 MG CAP PO SCH (23:09)
[2021-03-27] MEDS: ACETAMINOPHEN 500 MG TAB PO SCH (23:09)
[2021-03-27] MEDS ORDERED: POLYETHYLENE (MIRALAX) 17 GM PACK PO PRN (23:54)
[2021-03-27] MEDS ORDERED: DOCUSATE SODIUM 100 MG CAP PO PRN (23:54)
[2021-03-28] MEDS ORDERED: MoRPHine SULFATE 2 MG/ML CARP IV STA (00:14)
[2021-03-28] MEDS: oxyCODONE HCL IR 5 MG TAB (IMMEDIATE RELEASE) PO PRN ×5 (05:46→23:24)
[2021-03-28] MEDS: ACETAMINOPHEN 500 MG TAB PO SCH ×3 (05:46→22:06)
[2021-03-28] MEDS: PREGABALIN 100 MG CAP PO SCH ×2 (08:17→20:55)
[2021-03-28] MEDS: LIDOCAINE 5% 1 PATCH TD SCH (08:21)
[2021-03-28] MEDS: predniSONE 20 MG TAB PO SCH (08:23)
[2021-03-28] MEDS: ATORVASTATIN 10 MG TAB PO SCH (08:23)
[2021-03-28] MEDS: DULoxetine HCL 20 MG CAP PO SCH (08:23)
[2021-03-28] MEDS ORDERED: predniSONE 20 MG TAB PO SCH (09:00)
[2021-03-28] MEDS ORDERED: PREGABALIN 100 MG CAP PO SCH (09:00)
--- NOTE | 2021-03-28 09:16 | Hospitalist Progress Note ---
Date of Service March 28, 2021 Assessment & Plan (1) Acute right lumbar radiculopathy: 51yo C male with 6-8 weeks of intermittent right buttock pain with acute worsening on 03/25/21, now in severe discomfort, unable to ambulate due to pain. Patient is neurologically intact, no cauda/equina/bowel or bladder involvement. MRI lumbar spine 03/27/21 IMPRESSION: 1. There is a disc herniation eccentric to the right at L5-S1. This impinges on the transiting right-sided nerve roots, and also mildly effaces the right anterior aspect of the thecal sac. 2. Moderate spondylotic change at L4-L5. See above discussion for detailed level by level analysis. 3. Degenerative disc disease as above with significant endplate edema at L4- L5. 4. No destructive bony lesion is identified. -Patient given Dexamethasone 10mg IV in ER - will continue with PO prednisone 60mg -Tylenol q 8 hours. Will avoid NSAIDs due to prior allergy to Celecoxib. Patient states that topical Lidoderm, Voltaren do not work for him -Continue Cymbalta and Lyrica -Percocet 5mg po q 4 hours - I spoke to the patient's pain management physician Dr. Slim Mondragon who will add him on for an epidural steroid injection on March 30. Patient also requested a consultation with Dr. Slim Regalado who is he seen in the past who he did perform a consultation and does feel the patient's back may be amenable to surgical intervention if he fails conservative management with epidural steroid injections. -PT/OT evaluation (2) Ambulatory dysfunction: As above, secondary to acute lumbar radiculopathy -Prednisone, Tylenol, Percocet as above -PT/OT evaluation (3) Hyperlipidemia: Chronic -Continue Crestor (4) Sleep apnea: Chronic -CPAP 6 cm H2O. Patient may use his own device Code - Full Admission and Anticipated Discharge Date Admission Date: March 27, 2021 Subjective pt still having right leg radicular pain worsened with movement , did have some releif in the past with epidural injections, no bowel or bladder issues at present Review of Systems Review of Systems: Moderate distress and fatigue no headache, blurry or double vision no speech or swallowing issues no chest pain, pressure or palpitations no shortness of breath, cough or wheezes no abdominal pain, nausea or vomiting, diarrhea or constipation no dysuria, hematuria or frequency Some right hip focal joint pain but no swelling no back pain, CVA tenderness radicular right leg pain worse with bearing weight and slr no bruising, bleeding or rashes no focal signs of weakness or numbness or altered sensation no complaints of anxiety or depression.. Physical Exam Physical Exam: The patient appeared well nourished and normally developed. Vital signs as documented. Head exam is normocephalic atraumatic Neck is without JVD, thyromegaly, or carotid bruits. Lungs are clear to auscultation, no focal loss of breath sounds Cardiac exam, Rhythm is regular.. No murmurs, rubs or gallops. Abdominal exam reveals normal bowel sounds, soft non tender, no masses Extremities are nonedematous and both pedal pulses are present Neurologic exam is alert and oriented, no focal loss of strength or sensation reproducible posterior right leg pain with SLR, pt is hesitant to bear weight Skin is without bruises or rashes Psychologically is without concerns for anxiety or depression Results & Data Results & Data ([facility]) Vital Signs (Past 12 Hours) Vital Signs Temp Pulse Resp BP Pulse Ox 03/27/21 23:46 98.1 F 66 18 149/88 H 96 03/27/21 21:40 98.4 F 95 H 18 136/80 96 PG Care Time/CCT Total # of Minutes Spent Total Time Spent with Patient: Total time spent is greater than 50% in coordination of care (as documented) at patient's floor/unit and/or counseling patient: Coding Level of Care Code 34811 Subseq Hosp Care Lvl 2 Diagnoses Acute right lumbar radiculopathy M54.16 Ambulatory dysfunction R26.2 Hyperlipidemia E78.5 Hyperlipidemia type: unspecified Sleep apnea G47.30 Sleep apnea type: unspecified type (1) Sleep apnea Sleep apnea type: unspecified type Qualified Code(s): G47.30 - Sleep apnea, unspecified (2) Hyperlipidemia Hyperlipidemia type: unspecified Qualified Code(s): E78.5 - Hyperlipidemia, unspecified
--- NOTE | 2021-03-28 15:06 | Orthopedic Consultation ---
Date of Consultation March 28, 2021 Assessment & Plan (1) Acute right lumbar radiculopathy: I have had the opportunity review the patient's updated MRI lumbar spine. Demonstrates degenerative changes with small lateral annular tear on the right at L4-L5. L5-S1 has a large central disc herniation favoring the right side with marked encroachment the traversing S1 nerve root. Plan a long discussion this patient reviewing his clinical presentation and imaging. He could consider a repeat trial of lumbar epidural injections. These failed to provide any significant relief he would be a candidate for lumbar laminotomy and partial discectomy of L5-S1 the right. This hopefully provide relief. He would be at risk for recurrent disc herniation and we discussed in detail what this would involve. At this point he is considering epidural injection. We will follow him as needed. Present on Admission?: Yes History of Present Illness Reason for Consultation: Back and right leg pain Attending Physician: Vini Horvath MD History of Present Illness This is a 51-year-old male who presents with marked decline in status over the past several days. He describes pain involving the right buttock posterior thigh extending into the calf. It markedly limits his ability to stand and ambulate. He denies any precipitating trauma fall or event. Does have a history of some left-sided sciatica. He has had several injections over the past several years. He is comfortable lying supine. Allergies Allergy/AdvReac Type Severity Reaction Status Date / Time celecoxib Allergy Unknown RASH AND Verified 04/06/19 13:18 HIVES ON ARMS Home Medications Medication Instructions Recorded Confirmed Type Lyrica 25 mg PO BID 03/10/19 03/10/19 History atorvastatin 10 mg PO QAM 03/10/19 03/27/21 History duloxetine [Cymbalta] 20 mg PO QAM 03/10/19 03/27/21 History pregabalin [Lyrica] 100 mg PO BID 03/10/19 03/27/21 History oxycodone [Roxicodone] 5 mg PO Q4H #18 tab 03/27/21 Rx Patient History Medical History (Updated 03/27/21 @ 23:48 by Eve Rojas DO) Chronic back pain Degenerative disc disease Hip pain Hyperlipidemia Sleep apnea CPAP Surgical History History of arthroscopy LEFT HIP Hx of oral surgery SOMNOPLASTY S/P epidural steroid injection MULTIPLE Social History Smoking Status: Never smoker Second Hand Exposure: No; Do You Dip or Chew Tobacco: No; Hx Alcohol Use: No Hx Substance Use: No Preferred Language: Ugandan Communication Ability: Effective Label Rewinder Required: No Beliefs That Will Affect Care: None Current Living Situation: Alone Feels Safe at Home: Yes Safety Concerns: Feels Safe At This Time Assistive Devices: Glasses and Walker Assistive Devices Comment: Back pain Physical Exam Physical Exam: On physical exam he is able to stand with assistance. He is unable to bear weight on the right lower extremity. This produces immediate sciatica. Bench exam reveals marked tension signs with straight leg raising on the right as well as a positive Lasegue's maneuver. He has no tension signs with straight leg raising on the left. He has a plus out of 5 bilateral plantar flexion dorsiflexion quadriceps. Sensory appears to be symmetric and intact.
[2021-03-28] MEDS ORDERED: HYDROmorphone INJ 1 MG/ML SYRINGE IV PRN (20:10)
[2021-03-28] MEDS: IBUPROFEN 600 MG TAB PO SCH (20:55)
--- NOTE | 2021-03-28 21:40 | Communication Note ---
Date of Service: March 28, 2021 Called to patient's bedside due to patient's frustrations over plan of care. He is concerned because while he is scheduled for an outpatient [facility] management a ppointment with Dr. Mondragon on for epidural injection, he does not know how he will get there if he cannot walk without pain. In discussion with patient, while he has an allergy to Celebrex, he takes ibuprofen at home without hives, rash, ADRs. Ibuprofen 600mg q8h scheduled added to medications, as well as once time IV opiate dosing for pain for sleep. Pain Management consult placed as patient has inability to ambulate due to significant pain, making him getting to his outpatient appointment extremely difficult. Resident Activity Tracking Resident Involvement: Resident Care Provided Care Provided: Adult Hospital Medicine
[2021-03-29] MEDS: oxyCODONE HCL IR 5 MG TAB (IMMEDIATE RELEASE) PO PRN ×5 (05:05→23:28)
[2021-03-29] MEDS: IBUPROFEN 600 MG TAB PO SCH (05:05)
[2021-03-29] MEDS: ACETAMINOPHEN 500 MG TAB PO SCH ×3 (05:06→22:18)
[2021-03-29] MEDS: ATORVASTATIN 10 MG TAB PO SCH (09:49)
[2021-03-29] MEDS: DULoxetine HCL 20 MG CAP PO SCH (09:49)
[2021-03-29] MEDS: PREGABALIN 100 MG CAP PO SCH ×3 (09:50→22:18)
[2021-03-29] MEDS: predniSONE 20 MG TAB PO SCH (09:51)
[2021-03-29] MEDS: LIDOCAINE 5% 1 PATCH TD SCH (09:52)
--- NOTE | 2021-03-29 10:09 | Pain Management Consultation ---
Date of Consultation March 29, 2021 Assessment & Plan (1) Ambulatory dysfunction: (2) Intractable back pain: (3) Acute right lumbar radiculopathy: 1. Continue current medication regimen. 2. He seems quite comfortable in the hospital bed and able to move around without any difficulty. From how he is able to move so easily in bed, I suspect that he is able to ambulate around the room with little difficulty. Recommend PT work with him today to work on ambulating with more confidence. 3. He does reportedly have an outpatient epidural steroid injection scheduled tomorrow with Dr. Mondragon. Recommend that he continue with planned injection rather than the TJ being performed inpatient by different pain management group. Thank you for the consultation. Please call with questions or concerns. History of Present Illness Reason for Consultation: lumbar radiculopathy Attending Physician: Vini Horvath MD History of Present Illness This is a 51-year-old male that has been seen at [facility] for lumbar radiculopathy. Patient states that the pain has been ongoing for 2 months without any known injury. The pain has been significantly worsening since 03/25/2021. There is a deep aching, spasming sensation along the right low back into the right buttock and down the posterior right thigh to the knee. He describes 25% axial pain and 75% radicular pain. Pain is aggravated with standing and walking. He reports significant limitation into ambulating around his home that he did require help from his friends that were staying with him. Pain is mildly alleviated with laying supine. He was found to have a disc herniation at L5-S1 impinging on the right. He has seen Dr. Regalado and would be considered for a lumbar laminectomy and partial discectomy of L5-S1 should he fail to realize pain relief from an epidural injection. Patient has previously seen Dr. Mondragon and received epidural steroid injections, most recently in 2019 but the pain was slightly different at that time. It was more radicular symptoms towards the left in 2019. He has contacted Dr. Mondragon's office and was scheduled for a right hip injection today. After further discussion with Dr. Mondragon's office he has been scheduled for a right paramedian L5-S1 interlaminar epidural steroid injection tomorrow. He is currently taking Cymbalta 20 mg daily, prednisone 60 mg daily, ibuprofen 600 mg every 8 hours, Lyrica 100 mg 3 times daily, and oxycodone 10 mg every 4 hours if needed. He did have 1 dose of IV Dilaudid yesterday which did help him sleep. Patient denies any bowel/bladder incontinence, saddle anesthesia, foot drop, leg weakness, falls. Case discussed with Dr. Claribel Liu Pain Assessment Full Body Front + Back: 1. 2. Allergies Allergy/AdvReac Type Severity Reaction Status Date / Time celecoxib Allergy Unknown RASH AND Verified 04/06/19 13:18 HIVES ON ARMS Home Medications Medication Instructions Recorded Confirmed Type Lyrica 25 mg PO BID 03/10/19 03/10/19 History atorvastatin 10 mg PO QAM 03/10/19 03/27/21 History duloxetine [Cymbalta] 20 mg PO QAM 03/10/19 03/27/21 History pregabalin [Lyrica] 100 mg PO BID 03/10/19 03/27/21 History oxycodone [Roxicodone] 5 mg PO Q4H #18 tab 03/27/21 Rx Patient History Medical History Chronic back pain Degenerative disc disease Hip pain Hyperlipidemia Sleep apnea CPAP Surgical History History of arthroscopy LEFT HIP Hx of oral surgery SOMNOPLASTY S/P epidural steroid injection MULTIPLE Social History Smoking Status: Never smoker Second Hand Exposure: No; Do You Dip or Chew Tobacco: No; Hx Alcohol Use: No Hx Substance Use: No Preferred Language: Mauritian Communication Ability: Effective Global Marketing Intern Required: No Beliefs That Will Affect Care: None Current Living Situation: Alone Feels Safe at Home: Yes Safety Concerns: Feels Safe At This Time Assistive Devices: Walker Assistive Devices Comment: Back pain Physical Exam Physical Exam: GENERAL: This is a 51 year old male that does not appear in any acute distress. Does not appear in acute distress. He is moving around the hospital bed without any difficulty. Putting his knee to his chin without issues. HEAD/FACE: Normocephalic and atraumatic. EYES: No drainage or conjunctival injection. ENT: Nose without bleeding or discharge. Oral mucosa moist. NECK: Full ROM without apparent pain. RESPIRATORY: Patient with unlabored breathing. No signs of respiratory distress. CHEST/AXILLA: Chest movement symmetrical. No deformities noted. ABDOMEN/GI: No distension BACK: Moves without difficulty. No tenderness to palpation of the lumbar region. Mild tenderness of the right buttock. SKIN: [place], warm and dry. No rash noted. MS/EXTREMITY: 5/5 straight of the lower extremities. Positive straight leg raise on the right, negative on the left. NEURO: Alert and appears oriented. Speech is fluent. Cranial Nerves are grossly intact. PSYCH: Alert, racing speech, short tempered during discussion. Results (Pain Clinic) Diagnostic Review MRI Findings: MRI OF THE LUMBAR SPINE WITHOUT IV CONTRAST CLINICAL HISTORY: Chronic low back pain. Right lower extremity radiculopathy. COMPARISON STUDY: Radiographs of the lumbar spine dated 04/23/2012. MRI of the lumbar spine dated 02/05/2014. TECHNIQUE: MRI of the lumbar spine is performed utilizing various T1 and T2- weighted sequences in the axial and sagittal planes. IV contrast was not administered for this examination. FINDINGS: Lumbar spine: Vertebral body height and alignment are maintained throughout the lumbar spine. There is straightening of the lumbar lordosis. The transverse and spinous processes appear intact. There is no evidence of spondylolysis. Small anterior and lateral marginal osteophytes are seen throughout. No destructive bony lesion is seen. Chronic degenerative endplate change and endplate edema are noted at L4-L5. Intervertebral discs: Degenerative disc desiccation and loss of height are noted at L4-L5 and L5-S1. Loss of height is moderate to severe at L4-L5. The remaining discs are normal in height and signal intensity. Spinal cord: The visualized spinal cord is normal in morphology and signal intensity. The conus medullaris terminates at the level of L1. The nerve roots of the cauda equina are normal in morphology. L1-L2: Unremarkable. L2-L3: Unremarkable. L3-L4: Unremarkable. L4-L5: There is broad-based posterior disc bulge. No acquired compromise of the central canal is identified. There is bilateral subarticular stenosis, left greater than right. This may abut the exiting bilateral L4 nerve roots as well as the transiting bilateral nerve roots. In conjunction with facet arthropathy, there is mild bilateral neural foraminal stenosis. L5-S1: There is a posterior disc herniation eccentric to the right, best seen on axial image #23 and sagittal image #8. This impinges on the transiting right- sided nerve roots as well as the right anterior aspect of the thecal sac. There is bilateral subarticular stenosis, right greater than left. This may abut the exiting bilateral L5 nerve roots. Facet arthropathy contributes to mild bilateral neural foraminal stenosis. Sacrum: The visualized sacrum is normal in morphology and signal intensity. Soft tissues: The paraspinous soft tissues are normal as visualized. The imaged retroperitoneal structures are grossly unremarkable but incompletely assessed. IMPRESSION: 1. There is a disc herniation eccentric to the right at L5-S1. This impinges on the transiting right-sided nerve roots, and also mildly effaces the right anterior aspect of the thecal sac. 2. Moderate spondylotic change at L4-L5. See above discussion for detailed level by level analysis. 3. Degenerative disc disease as above with significant endplate edema at L4-L5. 4. No destructive bony lesion is identified. Dictated: 03/27/2021 5:03 PM Transcribed: 03/27/2021 5:22 PM Zoila [id number] CONCEPCIÓN_Vicente Electronically signed by: Elias Lyon M.D. 03/27/2021 5:24 PM
--- NOTE | 2021-03-29 17:41 | Hospitalist Progress Note ---
Date of Service March 29, 2021 Assessment & Plan (1) Acute right lumbar radiculopathy: 51yo C male with 6-8 weeks of intermittent right buttock pain with acute worsening on 03/25/21, now in severe discomfort, unable to ambulate due to pain. Patient is neurologically intact, no cauda/equina/bowel or bladder involvement. MRI lumbar spine 03/27/21 IMPRESSION: 1. There is a disc herniation eccentric to the right at L5-S1. This impinges on the transiting right-sided nerve roots, and also mildly effaces the right anterior aspect of the thecal sac. 2. Moderate spondylotic change at L4-L5. See above discussion for detailed level by level analysis. 3. Degenerative disc disease as above with significant endplate edema at L4- L5. 4. No destructive bony lesion is identified. -Patient given Dexamethasone 10mg IV in ER -continues on PO prednisone 60mg -Tylenol q 8 hours. Will avoid NSAIDs due to prior allergy to Celecoxib. Patient states that topical Lidoderm, Voltaren do not work for him -Continue Cymbalta and increased doses of Lyrica -Increase Percocet 10mg po q 4 hours - I spoke to the patient's pain management physician Dr. Slim Mondragon who will add him on for an epidural steroid injection on March 30. At 1:45 PM The patient also requested a consultation with Dr. Slim Regalado who is he seen in the past who he did perform a consultation and does feel the patient's back may be amenable to surgical intervention if he fails conservative management with epidural steroid injections. -PT/OT evaluation patient requesting crutch training (2) Ambulatory dysfunction: As above, secondary to acute lumbar radiculopathy -Prednisone, Tylenol, Percocet as above (3) Hyperlipidemia: Chronic -Continue Crestor (4) Sleep apnea: Chronic -CPAP 6 cm H2O. Patient may use his own device Code - Full Admission and Anticipated Discharge Date Admission Date: March 27, 2021 Subjective pt patient continues with right leg radicular pain worsened with movement and weightbearing, did have some relief in the past with epidural injections, no bowel or bladder issues at present Improved pain control escalation doses of oxycodone and Lyrica patient denies lidocaine patch at this time Review of Systems Review of Systems: Moderate distress and fatigue no headache, blurry or double vision no speech or swallowing issues no chest pain, pressure or palpitations no shortness of breath, cough or wheezes no abdominal pain, nausea or vomiting, diarrhea or constipation no dysuria, hematuria or frequency Some right hip focal joint pain but no swelling no back pain, CVA tenderness radicular right leg pain worse with bearing weight and slr no bruising, bleeding or rashes no focal signs of weakness or numbness or altered sensation no complaints of anxiety or depression.. Physical Exam Physical Exam: The patient appeared well nourished and normally developed. Vital signs as documented. Head exam is normocephalic atraumatic Neck is without JVD, thyromegaly, or carotid bruits. Lungs are clear to auscultation, no focal loss of breath sounds Cardiac exam, Rhythm is regular.. No murmurs, rubs or gallops. Abdominal exam reveals normal bowel sounds, soft non tender, no masses Extremities are nonedematous and both pedal pulses are present Neurologic exam is alert and oriented, no focal loss of strength or sensation reproducible posterior right leg pain with SLR, pt is hesitant to bear weight Skin is without bruises or rashes Psychologically is without concerns for anxiety or depression Results & Data Results & Data ([facility]) Vital Signs (Past 12 Hours) Vital Signs Temp Pulse Resp BP Pulse Ox 03/29/21 14:33 98.4 F 68 18 131/82 94 03/29/21 07:23 98.1 F 55 L 16 110/65 96 PG Care Time/CCT Total # of Minutes Spent Total Time Spent with Patient: Total time spent is greater than 50% in coordina tion of care (as documented) at patient's floor/unit and/or counseling patient: Coding Level of Care Code 54057 Subseq Hosp Care Lvl 2 Diagnoses Acute right lumbar radiculopathy M54.16 Ambulatory dysfunction R26.2 Hyperlipidemia E78.5 Hyperlipidemia type: unspecified Sleep apnea G47.30 Sleep apnea type: unspecified type (1) Hyperlipidemia Hyperlipidemia type: unspecified Qualified Code(s): E78.5 - Hyperlipidemia, unspecified (2) Sleep apnea Sleep apnea type: unspecified type Qualified Code(s): G47.30 - Sleep apnea, unspecified
[2021-03-30] MEDS: oxyCODONE HCL IR 5 MG TAB (IMMEDIATE RELEASE) PO PRN ×2 (06:07→10:34)
[2021-03-30] MEDS: ACETAMINOPHEN 500 MG TAB PO SCH (06:07)
[2021-03-30] MEDS: ATORVASTATIN 10 MG TAB PO SCH (09:12)
[2021-03-30] MEDS: predniSONE 20 MG TAB PO SCH (09:13)
[2021-03-30] MEDS: DULoxetine HCL 20 MG CAP PO SCH (09:13)
[2021-03-30] MEDS: LIDOCAINE 5% 1 PATCH TD SCH (09:13)
[2021-03-30] MEDS: PREGABALIN 100 MG CAP PO SCH ×2 (09:21→13:03)
--- NOTE | 2021-03-30 16:00 | Discharge Summary ---
Date of Service March 30, 2021 Admission HPI Per Admitting Provider Jl Amado is a 51yo male presenting with acute back pain. Patient has a longstanding history of chronic back pain. His chronic pain is typically located on the left which is managed well with Cymbalta, Lyrica. He has had acute L5-S1 radiculopathy in the past requiring occasional epidural steroid injections (last on record 04/06/[address] Slim Mondragon and 05/26/18 prior to that). Patient is scheduled to have another steroid injection performed on 03/29/[address] Langford. He reports good pain control following steroid injections. Patient noticed intermittent pain the right buttock in December. This pain acutely worsened on 03/25/21 with radiation down posterior lateral portion of right thigh to leg. +Numbness/tingling sensation in the right leg as well. He took some Tylenol with no relief. Yesterday the pain was "unbearable" to the point that he was unable to ambulate. He was unable to get comfortable at night, couldn't sleep or move. He contacted Dr. Mondragon's office and was instructed to seek emergency care if his pain could not be controlled with Tylenol. Upon arrival to the ER he was administered Dexamethasone as well as Morphine 4mg IV x 3 doses with minimal improvement in his discomfort. During his ambulatory trial in the ER he was unable to bear weight or walk. He lives on the 3rd floor - he has a friend staying with him currently who is in graduate school at [employer] in [place] and is unable to stay alf. Patient denies bowel or bladder incontinence. ER Course: Dexamethasone, Lidoderm, Morphine, Zofran Principal Diagnosis Radicular right leg pain with imaging showing right-sided L5-S1 eccentric disc herniation impinging to transitioning right-sided nerve roots also mildly effacing the right anterior aspect of the thecal sac Discharge Exam The patient appeared well Vital signs as documented. Lungs are clear to auscultation and appear unlabored Cardiac exam, Rhythm is regular.. No murmurs, rubs or gallops. Abdominal exam reveals normal bowel sounds, soft non tender, no masses Extremities are nonedematous and both pedal pulses are normal. Neurologic exam is alert and oriented, patient has no real loss of strength but has reproducible pain to bearing weight and straight leg raising on the right Skin is without bruises or rashes Psychologically is without concerns for anxiety or depression. Discharge Data Allergies Allergy/AdvReac Type Severity Reaction Status Date / Time celecoxib Allergy Unknown RASH AND Verified 03/30/21 13:29 HIVES ON ARMS Consultations 03/28/21 11:38 Consult Orthopedic Surgery Routine 03/28/21 19:55 Consult Pain Management Routine Ordered Studies 03/27/21 15:37 MR lumbar spine wo con Stat Hospital Course (1) Acute right lumbar radiculopathy: 51yo C male with 6-8 weeks of intermittent right buttock pain with acute worsening on 03/25/21, now in severe discomfort, unable to ambulate due to pain. Patient is neurologically intact, no cauda/equina/bowel or bladder involvement. MRI lumbar spine 03/27/21 IMPRESSION: 1. There is a disc herniation eccentric to the right at L5-S1. This impinges on the transiting right-sided nerve roots, and also mildly effaces the right anterior aspect of the thecal sac. 2. Moderate spondylotic change at L4-L5. See above discussion for detailed level by level analysis. 3. Degenerative disc disease as above with significant endplate edema at L4- L5. 4. No destructive bony lesion is identified. -Patient given Dexamethasone 10mg IV in ER -continues on PO prednisone 60mg -Tylenol q 8 hours. Will avoid NSAIDs due to prior allergy to Celecoxib. Patient states that topical Lidoderm, Voltaren do not work for him -Continue Cymbalta and increased doses of Lyrica -Increase Percocet 10mg po q 4 hours - I spoke to the patient's pain management physician Dr. Slim Mondragon who will add him on for an epidural steroid injection on March 30. At 1:45 PM The patient also requested a consultation with Dr. Slim Regalado who is he seen in the past who he did perform a consultation and does feel the patient's back may be amenable to surgical intervention if he fails conservative management with epidural steroid injections. -PT/has performed crutch training Prescription of Percocet was sent to his pharmacy (2) Ambulatory dysfunction: As above, secondary to acute lumbar radiculopathy -We will discharge the patient on escalating doses of steroids given his impending steroid and pain medication injection. Patient will use crutches as he needs to (3) Hyperlipidemia: Chronic -Continue Crestor (4) Sleep apnea: Chronic -CPAP 6 cm H2O. Patient may use his own device Code - Full Total Time Total Time Spent Total Time Spent (In Minutes): It required greater than 30 minutes to prepare this patient for discharge Discharge Plan Discharge Items Patient Disposition: Home - Self-Care Reason For Visit: DISC HERNIATION, UNABLE TO AMBULATE Discharge Diagnosis: radicular leg pain Condition on Discharge: Good Activity: Per Instructions section Lifting: Gradually increase as tolerated Non-emergency contact: Primary Care Provider, Surgeon and Pain Management Call non-emergency contact if: you have any medication questions and your sympt oms worsen Follow-up/Referrals: Slim Regalado DO [Surgeon] - Slim Mondragon MD [Surgeon] - Hawa Whitmore PA-C [Primary Care Provider] - Diet: Regular Addtl Attending Provider Instructions: The bones that form the spine in your back are cushioned by small discs. If a disc is damaged, it may bulge or break open (herniate). A herniated disc can result from normal wear and tear as we age or from an injury or disease. If a herniated disc irritates or presses on a nerve, it can cause pain and numbness in your leg (sciatica) and/or back pain. You may be able to heal your herniated disc with a few weeks or months of rest, medicine, and exercises. In some cases, you may need surgery. Follow-up care is a adhikari part of your treatment and safety. Be sure to make and go to all appointments, and call your doctor if you are having problems. It's also a good idea to know your test results and keep a list of the medicines you take. How can you care for yourself at home? Take your medicines exactly as prescribed. Call your doctor if you think you are having a problem with your medicine. continue to take tylenol 1000mg three times a day, after your injection you can also use ibuprofen use oxycodone carefully, you may use 2 at a time if needed, and continue lyrica three times a day unless your pain is great then reduce to twice a day Rest your back if your pain is severe. Avoid movements and positions that increase your pain or numbness. Try taking short walks and doing light activities that do not cause pain. Even if you are feeling some pain, it is important to keep your muscles active and strong. Use heat or ice to relieve pain. ?To apply heat, put a warm water bottle, heating pad set on low, or warm cloth on your back. Do not go to sleep with a heating pad on your skin. ?To use ice, put ice or a cold pack on the area for 10 to 20 minutes at a time. Put a thin cloth between the ice and your skin. . Rise slowly. Avoid turning or twisting your body while holding a heavy object. If you gain relief from your injection please follow up with Dr Schaefer, if you do not contact Dr Regalado for further care Pending Studies at Discharge: No Stand-Alone Forms: [facility] [employer], Opioid Pain Management, Smoking Cessation Medications and DC Order Prescriptions: New oxycodone [Roxicodone] 5 mg tablet 5 mg PO Q4H Qty: 18 RF: 0 Continued atorvastatin 10 mg Tablet 10 mg PO QAM RF: 0 duloxetine [Cymbalta] 20 mg Capsule,Delayed Release(Dr/Ec) 20 mg PO QAM RF: 0 Changed pregabalin [Lyrica] 100 mg Capsule 100 mg PO TID Qty: 0 RF: 0 Discontinued pregabalin [Lyrica] 25 mg Capsule 25 mg PO BID RF: 0 No Action prednisolone 60 mg PO RF: 0 Discharge Orders: Discharge Order (Routine); Ordered 03/30/21 Ordered By: Vini Horvath Admission Data Admit Date/Time: 03/27/21 20:29 Attending Provider: Vini Horvath Admit Provider: Eve Rojas Primary Care Provider: Hawa Whitmore Other Providers: Slim Regalado ; Gerry Fraser Other Interventions: Discharge Summary Assessment (RN) Last Done: 03/30/21 12:00 Coding Level of Care Code D/C Day Management >30 mins Diagnoses Acute right lumbar radiculopathy M54.16 Ambulatory dysfunction R26.2 Hyperlipidemia E78.5 Hyperlipidemia type: unspecified Sleep apnea G47.30 Sleep apnea type: unspecified type
== END 2021-03-30 13:45 | disposition home or self-care (01) ==
LOC: ED 15:08 → 3W 15:08 → SUATTDRO 20:29 → 3W 21:16

== ENCOUNTER 2024-06-18 05:22 | Observation (INO) ==
--- NOTE | 2024-05-27 15:15 | PAT Medication Instructions ---
Medication Instructions Date of Service May 27, 2024 Home Medications cholecalciferol (vitamin D3) 25 mcg (1,000 unit) tablet (Vitamin D3) 25 mcg PO QAM cyanocobalamin (vitamin B-12) 1,000 mcg tablet 1,000 mcg PO QAM multivitamin 1 tab PO QAM pregabalin 100 mg capsule (Lyrica) 100 mg PO BID aripiprazole 2 mg tablet 2 mg PO HS atorvastatin 20 mg tablet 20 mg PO QAM duloxetine 30 mg capsule,delayed release 30 mg PO QAM DO NOT take the morning of surgery cholecalciferol (vitamin D3) 25 mcg (1,000 unit) tablet (Vitamin D3) 25 mcg PO QAM cyanocobalamin (vitamin B-12) 1,000 mcg tablet 1,000 mcg PO QAM multivitamin 1 tab PO QAM Take morning of surgery With a small sip of water, OTHERWISE NOTHING TO EAT OR DRINK AFTER MIDNIGHT: pregabalin 100 mg capsule (Lyrica) 100 mg PO BID atorvastatin 20 mg tablet 20 mg PO QAM duloxetine 30 mg capsule,delayed release 30 mg PO QAM Take evening before surgery pregabalin 100 mg capsule (Lyrica) 100 mg PO BID aripiprazole 2 mg tablet 2 mg PO HS Other Notes If you have any questions please call us at [phone] or [phone] or [phone] or [phone]
--- NOTE | 2024-06-03 14:01 | Anesthesiology Consultation ---
Date of Service June 03, 2024 Assessment & Plan (1) Encounter for pre-operative examination: - Infectious disease screening: Per assessment on 06/03/24: No known recent infectious disease contacts or current infectious disease symptoms. - Outpatient joint assessment: Pt currently scheduled for inpatient pathway. If surgeon requests review for outpatient joint pathway, patient is an acceptable candidate for outpatient joint program from anesthesia standpoint pending surgeon's office assessment that patient is motivated, has good support and completes [facility] preop requirements. - Elevated PTT: Isolated, elevated PTT at 34 (PT/INR levels WNL) on preop labs. Reviewed with Dr. Sigala- does not feel further evaluation needed preoperatively from his perspective- recommendation to recheck PTT level DOS- order placed. Chart Review Chart Review: Acceptable Risk for Surgery and Patient seen in Pre Admission Testing Teaching & Discussion Pre-Anesthesia Teaching/Discussion Notes: Instructed NPO after midnight before surgery,except medications with 15 cc of water. Medication instructions provided according to the PAT guidelines. History Surgery Operation Date: 06/18/24 07:00 Proposed Procedures p Left Total Hip Arthroplasty - Mohan Barajas MD Height/Weight Height: 6 ft 2 in Weight: 88.3 kg Allergies Allergy/AdvReac Type Severity Reaction Status Date / Time celecoxib Allergy Intermediate Rash/hives Verified 05/27/24 15:13 (arms) Medications Home Medications Medication Instructions Recorded Confirmed Last Taken cholecalciferol (vitamin D3) 25 25 mcg PO QAM 04/04/21 05/27/24 05/31/22 mcg (1,000 unit) tablet (Vitamin D3) cyanocobalamin (vitamin B-12) 1,000 mcg PO QAM 04/04/21 05/27/24 05/31/22 1,000 mcg tablet multivitamin 1 tab PO QAM 04/04/21 05/27/24 05/31/22 pregabalin 100 mg capsule (Lyrica) 100 mg PO BID 05/16/22 05/27/24 05/31/22 aripiprazole 2 mg tablet 2 mg PO HS 05/27/24 05/27/24 Unknown atorvastatin 20 mg tablet 20 mg PO QAM 05/27/24 05/27/24 Unknown duloxetine 30 mg capsule,delayed 30 mg PO QAM 05/27/24 05/27/24 Unknown release Past Medical History Medical History Chronic pain Reason for cymbalta/Abilify per patient Hyperlipidemia Sleep apnea CPAP (compliant) Jaw clicking Denies locking Degenerative disc disease Exercise / Class Metabolic Activity II 4-5 Yardwork/Stairs/Walk up hill Past Family History Family History Father Family history of diabetes mellitus Other No family history of adverse response to anesthesia Past Surgical History Surgical History Hx of colonoscopy History of lumbar laminectomy 2011, L5-S1 [place] teeth removed History of tonsillectomy and adenoidectomy History of uvulopalatopharyngoplasty S/P epidural steroid injection Multiple History of arthroscopy Left hip Past Anesthesia History No Hx of Anesthesia Complications and No Family Hx of Anesthesia Complications History of PONV No Hx of PONV and No Hx of Motion Sickness Social History Smoking Status: Never smoker Do You Dip or Chew Tobacco: No Hx Alcohol Use: No Hx Substance Use: Yes substance use type: marijuana Review of Systems Patient denies chest pain, shortness of breath, dyspnea on exertion, fever, chills, cough, wheezing, palpitations. Physical Exam Vital Signs BP 114/72 P 65 TEMP 98.5 SP02 96%RA RESP 16 Physical Full cervical extension range of motion. Full TMJ range of motion. TMD 2.5 finger breaths Mallampati Score III Dentition: intact, + crowns Lungs: clear throughout to auscultation Cardiac: regular rate and rhythm, no murmurs noted Spine: normal Carotid arteries: negative bruit Extremities: no LE edema Lab Results Anesthesia Preop Results Results Anesthesia Widget: WBC 5.76 K/ul (4.8-10.8) 06/03/24 Hgb 16.5 g/dl (14.0-18.0) 06/03/24 Hct 49.7 % (42.0-52.0) 06/03/24 Plt 156 K/uL (130-400) 06/03/24 Na 140 mmol/L (136-145) 06/03/24 K 4.3 mmol/L (3.5-5.1) 06/03/24 Cl 107 mmol/L (98-107) 06/03/24 CO2 28 mmol/L (21-32) 06/03/24 BUN 17 mg/dl (6-23) 06/03/24 Creat 1.34 mg/dl (0.6-1.4) 06/03/24 Glucose Level 89 mg/dl (70-99(Fasting)) 06/03/24 PT 10.5 Seconds (9.0-12.0) 06/03/24 PTT 34 Seconds (21-31) H 06/03/24 INR 1.0 (0.9-1.1) 06/03/24 Urine Color Yellow 06/03/24 Urine Appearance Clear (Clear) 06/03/24 Urine pH 8.0 (4.5-7.5) H 06/03/24 Urine Specific [place] 1.012 (1.000-1.030) 06/03/24 Urine Protein Negative (Negative) 06/03/24 Urine Glucose (UA) Negative (Negative) 06/03/24 Urine Ketones Negative (Negative) 06/03/24 Urine Blood Negative (Negative) 06/03/24 Urine Nitrite Negative (Negative) 06/03/24 Urine Bilirubin Negative (Negative) 06/03/24 Urine Urobilinogen Negative (Negative) 06/03/24 Urine Leukocyte Esterase Negative (Negative) 06/03/24 Blood Type O Negative 06/03/24 Antibody Screen NEGATIVE 06/03/24 Testing Electrocardiogram Date: 06/03/24 Findings: + NSR @ (86)
--- NOTE | 2024-06-03 15:21 | History & Physical Report ---
Date of Service June 03, 2024 Assessment & Plan (1) Osteoarthritis of left hip: Plan: PRE-OP Diagnosis: Left hip osteoarthritis Planned Procedure: Left total hip arthroplasty Plan: Patient is scheduled to undergo this procedure at the [facility] with a 23-hour observation admission with Dr. Barajas on May. Risks and complications of the procedure such as: Infection, bleeding, pain, scarring, nerve blood vessel damage, weakness, wound problems, stiffness, incomplete relief of symptoms, hardware failure, hardware loosening, wear, fracture, tendon or ligament injury, dislocation, leg length inequality, blood clots, Embolism, heart attack, stroke and were explained to the patient at his visit today. Informed consent to perform the procedure was obtained. Patient has an appointment to meet with anesthesia tomorrow and while there will obtain CBC with differential, complete metabolic panel, PT/INR, blood type and screen, urinalysis, urine culture and sensitivity, EKG, and a nasal culture for MRSA. Patient will also need preoperative medical clearance from their primary care provider at [facility]. Patient states that he plans on doing in-home physical therapy for the first 1 to 2 weeks postoperatively with [facility] home care. Patient states that he will most likely elect to do outpatient physical therapy at our PT clinic. Patient will need a walker, raised toilet seat, shower chair and a hip kit. During today's visit we reviewed the total hip packet as well as precautions. We discussed discharge planning from the hospital. I provided paperwork to obtain a handicap placard for their vehicle. We discussed lectures offered by [facility] in regards to joint replacement surgery via Zoom. I advised the patient that upon discharge from hospital we will prescribe a narcotic pain medication and anti-inflammatory. Patient will also be on an 81 mg aspirin twice daily for blood clot prevention. Patient will be scheduled for 2-week postoperative follow-up visit with myself on July 01. This chart was completed utilizing [employer] voice recognition software. Grammatical errors, random word insertions, pronoun errors, and in complete s entences are an occasional consequence of the system. Any questions or concerns about the content, text, or information contained within the body of this dictation should be addressed directly to the physician for clarification. History of Present Illness Chief Complaint: Chief Complaint: Left hip pain Primary Care Provider: Hawa Whitmore PA-C History of Present Illness (including history relevant to procedure): This 54-year-old male presents to the clinic today for his preoperative history and physical. Patient complains of a 10-year history of left hip pain. Patient states that he has had corticosteroid injections in the hip joint, use nonsteroidal agents and done physical therapy. He states that he also had a past surgery for labral repair in the hip. He states that his symptoms persist and he has had no relief with previous interventions. Patient is electing to proceed with surgical intervention. Review Of Systems: A 12 point review systems is performed and is unremarkable except for those things stated in the HPI and past medical history. Past Medical History: Problems: Lumbar disc disease Major depression, recurrent, chronic History of laminectomy Hyperlipidemia Right sacral radiculopathy Decreased libido Leg numbness Femoral acetabular impingement Weight disorder Hip pain Hip pain Buttock pain Sleep apnea Fibromyositis Backache Procedure History Procedure Procedure Date Comments Left hip surgery - September 2011Decemb2011 wisdom teeth removed sinus surgery UPPP Epidural injection x2 - 03/2010, 04/2010 Lumbar epidural injection 03/26/2023 - [facility] Lumbar epidural steroid injection 08/29/2022 - [facility] Injection of sacroiliac joint using fluoroscopic guidance 07/12/2022 - [facility] Colonoscopy 12/22/2021 - 12/22/21 A polyp decending colon hyperplastic polyp background intestinal spirochetosis. B polyp rectum hyperplastic polyp backgroudn intestinal spirochetosis. comment parts and b sections demonstrate fragments of colonic mucosa with histologic features consistent with hyperplastic polys and morphologic findings of an irregular fuzzy appearing basophilic border at the surface of the colonic epithelial cells. a warthin-starry special stain was performed on a assistance representative section block b at [facility] to evaluate for the presence of spirochetes and is positive confirming the diagnosis of intestinal spirochetosis. most cases of intestinal spirochetosis are asymptomatic . how ever symptomatic patients. eg.those with chronic watery diarrhea abd pain. anal discharge may benefit from antimicrobial and antidiarrheal therapy. all controls stained appropriately. - COLO to cecum, DC polyp 3 mm CF, rectal polyp 2 mm CF Epidural steroid injection 10/25/2021 - [facility] EPIDURAL STEROID INJECTION WITH FLUROSCOPIC GUIDANCE [facility] Bilateral clear ear canals2. Normal hearing sensitivity slopiong to a moderately severe sensorineural hearing loss bilaterally Ultrasound 06/26/2021 - RENAL ULTRASOUNDIMPRESSION: Normal renal ultrasound. No hydronephrosis. Laminotomy 04/07/2021 - [facility]. Lumbar laminotomy L5-S1 on the right with excision of herniated free fragments MRI of lumbar spine [facility] There is a disc herniation eccentric to the right at L5-S1. This impinges on the transiting right-sided nerve roots, and also mildly effaces te right anterior aspect of the thecal sac2. Moderate spondylotic change at L4-L53. Degenerative disc disease with significant endplate edema at L4-L54. No destructive bony lesion is identified Lumbar epidural [facility] -[facility] of left fingers [facility] Comminuted fracture distal phalanx left third finger. No evidence of dislocation Septoplasty 2001 Allergies and Sensitivities: Celebrex(rash) Current Home Meds: (Last Updated 06/02 13:00) ARIPiprazole (ARIPiprazole 2 mg oral tablet) 1 tab PO Daily DULoxetine (DULoxetine 30 mg oral delayed release capsule) 30 mg PO Daily atorvastatin (atorvastatin 20 mg oral tablet) 1 tab PO Daily emtricitabine-tenofovir (emtricitabine-tenofovir disoproxil 200 mg-300 mg oral tablet) 1 tab PO Daily erythromycin ophthalmic (erythromycin 0.5% ophthalmic ointment) 0.5 inch left eye qid meloxicam (meloxicam 15 mg oral tablet) 1 tab PO Daily pregabalin (Lyrica 100 mg oral capsule) 100 mg PO tid sildenafil (sildenafil 100 mg oral tablet) TAKE 1 TABLET DAILY 1 HOUR BEFORE SEXUAL ACTIVITY NEEDED FOR ERECTILE DYSFUNCTION sodium hyaluronate (Euflexxa 10 mg/mL intra-articular solution) 20 mg intra- articular q7days 3 syringes for L hip. Please ship to physician's office: Rahul0 Lazarsu Jones. Dave. [address] [place] [id number] traMADol (traMADol 50 mg oral tablet) 50 mg PO q6h PRN: as needed for pain Initial Wt: 06/02 87.6 kg 193 lb Allergies Allergy/AdvReac Type Severity Reaction Status Date / Time celecoxib Allergy Intermediate Rash/hives Verified 05/27/24 15:13 (arms) Home Medications Medication Instructions Recorded Confirmed Type cholecalciferol (vitamin D3) 25 25 mcg PO QAM 04/04/21 05/27/24 History mcg (1,000 unit) tablet (Vitamin D3) cyanocobalamin (vitamin B-12) 1,000 mcg PO QAM 04/04/21 05/27/24 History 1,000 mcg tablet multivitamin 1 tab PO QAM 04/04/21 05/27/24 History pregabalin 100 mg capsule (Lyrica) 100 mg PO BID 05/16/22 05/27/24 History aripiprazole 2 mg tablet 2 mg PO HS 05/27/24 05/27/24 History atorvastatin 20 mg tablet 20 mg PO QAM 05/27/24 05/27/24 History duloxetine 30 mg capsule,delayed 30 mg PO QAM 05/27/24 05/27/24 History release Past Med/Surg History Problem List (Updated 06/03/24 @ 15:20 by Haroon Goodwin PA-C) Osteoarthritis of left hip Lumbar disc herniation with radiculopathy Encounter for pre-operative examination Intractable back pain (Acute) Hyperlipidemia Sleep apnea CPAP Medical History Chronic pain Reason for cymbalta/Abilify per patient Hyperlipidemia Sleep apnea CPAP (compliant) Jaw clicking Denies locking Degenerative disc disease Surgical History Hx of colonoscopy History of lumbar laminectomy 2011, L5-S1 [place] teeth removed History of tonsillectomy and adenoidectomy History of uvulopalatopharyngoplasty S/P epidural steroid injection Multiple History of arthroscopy Left hip Family History Father Family history of diabetes mellitus Other No family history of adverse response to anesthesia Social History Smoking Status: Never smoker Second Hand Exposure: Yes (hx); Do You Dip or Chew Tobacco: No; Hx Alcohol Use: No Hx Substance Use: Yes Last Used Substance: Unknown Last Used Substance Other:: last use 6 months ago Preferred Language: German Communication Ability: Effective Therapeutic Program Worker Required: No Beliefs That Will Affect Care: None Current Living Situation: Alone Feels Safe at Home: Yes Assistive Devices: Glasses Review of Systems All systems reviewed & are unremarkable except as noted in Subjective Physical Exam Physical Exam: Physical Exam: (relevant to the procedure, including heart and lung evaluation) General: Alert and oriented x 3 with proper grooming and hygiene Eyes: Pupils are equal and reactive to light with accommodation. Extraocular moods are intact Throat: Posterior oropharynx clear with absence of edema, erythema or exudate. Dentition is appropriate Cardiac: Regular rate and rhythm with no murmurs or gallops appreciated Lungs: Clear to auscultation throughout no wheezing, rales or rhonchi Abdomen: Nonobese, nondistended, nontender with NABS Extremities: Left hip; flexion is limited to 120 degrees, internal rotation to 5 degrees and external rotation to 45 degrees. Stinchfield test positive. Logroll test and straight leg raise test are both negative. Impingement test is negative. Patient does experience some slight tenderness to palpation in the groin. He is neurovascularly intact in left lower extremity. Neuro: Cranial nerves II through XII are intact no motor or sensory deficit Skin: Normal in appearance with no open skin areas or discharge Results & Data Diagnostic Findings Studies (relevant to the procedure): AP pelvis,false profile and crosstable lateralviews of theleft hip which shows arthritic changed in the left hip. There is some mild joint space narrowing seen on the crosstable lateral view
[2024-06-18] MEDS: traMADol HCL 50 MG TABLET PO SCH (05:54)
[2024-06-18] MEDS: LR 500ML BOLUS, THEN 15ML/HR IV SCH (05:54)
[2024-06-18] MEDS: Scopolamine 1 MG TDSY TD SCH (05:55)
[2024-06-18] MEDS: FAMOTIDINE 20 MG TAB PO SCH (05:55)
[2024-06-18] MEDS: ACETAMINOPHEN 500 MG TAB PO SCH ×2 (05:55→13:34)
[2024-06-18] MEDS: dexAMETHasone**PF** 10 MG/ML VIAL IV SCH (05:56)
[2024-06-18] MEDS: LR 60ML/HR IV SCH (05:56)
[2024-06-18] MEDS ORDERED: ROPIV 0.5% 246mg, Ketorolac 30mg, EPINEPHrine 0.5mg in NSS INFIL SCH (06:00)
[2024-06-18] MEDS ORDERED: BUPIVACAINE 0.5 % 5 MG/1 ML PF 10ML VIAL ONE (06:22)
[2024-06-18 06:33] LABS: Partial Thromboplastin Ratio 1.3; Partial Thromboplastin Time 35 Seconds (21-31); Prothrombin Time 10.5 Seconds (9.0-12.0)
--- NOTE | 2024-06-18 06:37 | History & Physical Bridge Note ---
Date of Service June 18, 2024 History & Physical Bridge Note I have examined the patient, reviewed the History & Physical and in the interval since the performance of the History & Physical I have noted the following changes of clinical significance: no changes noted
[2024-06-18] MEDS ORDERED: ePHEDrine sulfate 50 MG/ML AMP IV PRN (06:42)
[2024-06-18] MEDS ORDERED: fentaNYL citrate PF 100 MCG/2 ML VIAL IV PRN (06:42)
[2024-06-18] MEDS: TRANEXAMIC ACID 1,000 MG **IV Pre-op IV SCH (06:42)
[2024-06-18] MEDS ORDERED: ONDANSETRON INJ 2 MG/ML 2 ML VIAL IV PRN ×2 (06:42→09:48)
[2024-06-18] MEDS ORDERED: ATROPINE SULFATE 0.1 MG/ML 10ML SYR IV PRN (06:42)
[2024-06-18] MEDS: ceFAZolin 2000MG 2,000 MG/15 ML SYR IV SCH ×2 (06:59→15:16)
[2024-06-18] MEDS: ROPIVACAINE 0.5% HCL/PF 246 MG, Ketorolac (*for OR use only*) 30 MG, EPINEPHrine 30MG/3... INFIL SCH (07:25)
[2024-06-18] MEDS: ORTHO JOINT ANESTHETIC ONE (07:25)
[2024-06-18] MEDS ORDERED: hydrALAZINE HCL 20 MG/ML VIAL ONE (07:33)
--- OUTSIDE RECORDS SUMMARY | 2024-06-18 08:02 | External Medical Summary | Continuity of Care Document ---
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 Name Role Phone Hawa Whitmore Primary Care Physician [phone] [id number] Date(s): 06/02/24 - 06/02/24 [facility] [address] [address] [facility] [address] [id number] Encounter Diagnosis Preop examination(Discharge Diagnosis) - 06/02/24 Osteoarthritis of left hip(Discharge Diagnosis) - 06/02/24 Discharge Disposition: Home or Self Care Attending Physician: HALEY Goodwin Dennis Referring Physician: MD Karl, Mohan Farah Allergies, Adverse Reactions, Alerts Substance Criticality Severity Reaction Reaction Severity Status Celebrex rash Active Immunizations Given and Recorded Vaccine Date Status Refusal Reason zoster vaccine, inactivated 1 08/24/22 Recorded zoster vaccine, inactivated 2 06/20/22 Recorded SARS-CoV-2 mRNA ([id number]-cno) 3 06/20/22 Recorded SARS-CoV-2 (COVID-19) mRNA BNT-162b2 vax 4 09/28/21 Recorded SARS-CoV-2 (COVID-19) mRNA BNT-162b2 vax 5 03/10/21 Recorded SARS-CoV-2 (COVID-19) mRNA BNT-162b2 vax 6 02/15/21 Recorded influenza virus vaccine, inactivated 7 09/01/20 Re corded influenza virus vaccine, inactivated 08/12/17 Give n influenza virus vaccine, inactivated 09/28/16 Give n influenza virus vaccine, inactivated 08/30/15 Give n influenza virus vaccine, inactivated 08/10/10 Jorge L rded tetanus/diphtheria/pertuss, acel (Tdap) 8 02/10/17 Recorded tetanus/diphtheria/pertuss, acel (Tdap) 07/21/14 G iven diphtheria/pertussis, whole cell/tetanus 9 02/10/17 Recorded 1Result Comment: 2022-10-29: Historical information-source unspecified 2Result Comment: 2022-10-29: Historical information-source unspecified 3Result Comment: 2022-10-29: Historical information-source unspecified 4Result Comment: 2022-10-29: Historical information-source unspecified 5Result Comment: 2022-10-29: Historical information-source unspecified 6Result Comment: 2022-10-29: Historical information-source unspecified 7Result Comment: DIONI BOWDEN..LOT# [id number], SANOFI-PASTEUR, EXP 05/24/2021- [address] 8Result Comment: 2022-10-29: Historical information-source unspecified 9Result Comment: 2022-10-29: Historical information-source unspecified Medications ARIPiprazole 2 mg oral tablet Start: 05/29/24 11:42:00 AM EDT, 1 tab, PO, Daily, Disp# 90 tab, Refills: 0, Pharmacy: [facility] Start Date: 05/29/24 Status: Ordered atorvastatin 20 mg oral tablet Start: 02/19/24 7:45:00 AM EDT, 1 tab, PO, Daily, Disp# 90 tab, Refills: 3, Pharmacy: [facility] Start Date: 02/19/24 Status: Ordered DULoxetine 30 mg oral delayed release capsule Start: 11/11/23 2:22:00 PM EST, 1 cap, PO, Daily, Disp# 90 cap, Refills: 3, Pharmacy: [facility] Start Date: 11/11/23 Status: Ordered emtricitabine-tenofovir disoproxil 200 mg-300 mg oral tablet Start: 02/05/24 11:51:00 AM EDT, 1 tab, PO, Daily, Disp# 90 tab, Refills: 3, Pharmacy: [facility] Start Date: 02/05/24 Status: Ordered erythromycin 0.5% ophthalmic ointment Start: 12/06/23 12:00:00 PM EST, 0.5 inch, left eye, qid, Disp# 3.5 g, Pharmacy: [facility]/pharmacy #[id number] Start Date: 12/06/23 Stop Date: 12/16/23 Status: Ordered Euflexxa 10 mg/mL intra-articular solution Start: 10/11/23 4:39:00 PM EST, 20 mg =, intra-articular, q7days, Disp# 6 mL, Refills: 3, 3 syringes for L hip. Please ship to physician's office: [address] [place] [address], [place] [id number], Note to Pharmacy: Left hip pain M16.12, Pharmacy: [facility] Start Date: 10/11/23 Stop Date: 01/03/24 Status: Ordered Lyrica 100 mg oral capsule Start: 05/29/24 11:42:00 AM EDT, 1 cap, PO, tid, Disp# 270 cap, Refills: 0, [facility]acy: [facility] Start Date: 05/29/24 Stop Date: 08/27/24 Status: Ordered meloxicam 15 mg oral tablet Start: 05/01/24 7:32:00 AM EDT, 1 tab, PO, Daily, Disp# 90 tab, Refills: 3, [facility]acy: [facility] Start Date: 05/01/24 Status: Ordered sildenafil 100 mg oral tablet Start: 02/05/24 11:51:00 AM EDT, See Instructions, Disp# 90 tab, Refills: 19, TAKE 1 TABLET DAILY 1 HOUR BEFORE SEXUAL ACTIVITY NEEDED FOR ERECTILE DYSFUNCTION, Pharmacy: [facility] Start Date: 02/05/24 Status: Ordered traMADol 50 mg oral tablet Start: 04/16/23 10:29:00 AM EDT, 1 tab, PO, q6h, Disp# 120 tab, PRN: as needed for pain, Pharmacy: [facility]/pharmacy #[id number] Start Date: 04/16/23 Stop Date: 05/16/23 Status: Ordered Mental Status 06/02/24 Barriers to Learning one year None evide nt Mandatory Health Literacy Documentation Yes Health Literacy Communication Barriers N ever Primary Language Andorran Problem List Condition Confirmation Course Effective Dates Status H ealth Status Informant Backache Confirmed Active Buttock pain 1 Confirmed Active Femoral acetabular impingement Confirmed Active Lumbar disc disease Confirmed Active Fibromyositis Confirmed Active History of laminectomy Confirmed Active Hip pain Confirmed Active Hyperlipidemia Confirmed Active Leg numbness Confirmed Active Major depression, recurrent, chronic Confirmed Active Decreased libido Confirmed Active Right sacral radiculopathy Confirmed Active Sleep apnea Confirmed Active Weight disorder Confirmed Active 1left Diagnosis Diagnosis Type Effective Dates Health Status Clinical Service Informant Osteoarthritis of left hip Discharge Diagnosis 06/02/24 Preop examination Discharge Diagnosis 06/02/24 Procedures Procedure Date Related Diagnosis Body Site Status Lumbar epidural injection 1 03/26/23 Completed Lumbar epidural steroid injection 2 08/29/22 Completed Injection of sacroiliac join t using fluoroscopic guidance 3 07/12/22 Complete d Epidural steroid injection 4 05/31/22 Completed Colonoscopy 5, 6 12/22/21 Complete d Epidural steroid injection 7 10/25/21 Completed Hearing examination 8 09/13/21 Com pleted Ultrasound 9 06/26/21 Completed Laminotomy 10 04/07/21 Completed MRI of lumbar spine 11 03/27/21 Co mpleted Lumbar epidural steroid injection 12 05/26/18 Completed X-ray of left fingers 13 02/10/17 Completed Septoplasty 2001 Completed Epidural injection x2 14 Completed Left hip surgery 15 Compl eted sinus surgery Completed UPPP Completed wisdom teeth removed Comp leted 1UOC 2UOC 3UOC 4[facility] Caudal epidural steroid injection 5COLO to cecum, DC polyp 3 mm CF, rectal polyp 2 mm CF A polyp decending colon hyperplastic polyp background intestinal spirochetosis. B polyp rectum hyperplastic polyp backgroudn intestinal spirochetosis. comment parts and b sections demonstratefragments of colonic mucosa with histologic features consistent with hyperplastic polys and morpholo gic findings of an irregular fuzzy appearing basophilic border at the surface of the colonic epithelial cells. a warthin-starry special stain was performed on a account maintenance representative section block b at [facility] to evaluate for the presence of spirochetes and is positive confirming the diagnosisof intestinal spirochetosis. most cases of intestinal spirochetosis are asymptomatic . how ever symptomatic patients. eg.those with chronic watery diarrhea abd pain. anal discharge may benefit from antimicrobial and antidiarrheal therapy. all controls stained appropriately. 7CAUDAL EPIDURAL STEROID INJECTION WITH FLUROSCOPIC GUIDANCE 8[facility] Impression: 1. Bilateral clear ear canals 2. Normal hearing sensitivity slopiong to a moderately severe sensorineural hearing loss bilaterally 9RENAL ULTRASOUND IMPRESSION: Normal renal ultrasound. No hydronephrosis. 10[facility] 1. Lumbar laminotomy L5-S1 on the right with excision of herniated free fragments 11[facility] Impression: 1. There is a disc herniation eccentric to the right at L5-S1. This impinges on the transiting right-sided nerve roots, and also mildly effaces te right anterior aspect of the thecal sac 2. Moderate spondylotic change at L4-L5 3. Degenerative disc disease with significant endplate edema at L4-L5 4. No destructive bony lesion is identified 12[facility] Right paramedian L5 -S1 13[facility] Impression: 1. Comminuted fracture distal phalanx left third finger. No evidence of dislocation , 04/2010 15November 2010October 2012 Vital Signs Most recent to oldest [Reference Range]: 1 Height 187.6 cm (06/02/24 1:01 PM) Patient Weight 87.6 kg (06/02/24 1:01 PM) Body Mass Index 24.89 kg/m2 (06/02/24 1:01 PM) Temperature [36.5-37.9 DegC] 35.9 DegC *LOW* (06/02/24 1:01 PM) Respiratory Rate 20 br/min (06/02/24 1:01 PM) Blood Pressure 106/68mmHg (06/02/24 1:01 PM) Cuff Pulse Pressure 38 mmHg (06/02/24 1:01 PM) Social History Social History Type Response Smoking Status Never smoked cigaret wes Sex Male Patient Care team information Care Team Personnel Name: HALEY Whitmore, Hawa Cade 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
--- OUTSIDE RECORDS SUMMARY | 2024-06-18 08:02 | External Medical Summary | Continuity of Care Document ---
Author Name Unknown Organization [facility] [address] [facility] Address [address] [place], [place] [id number] Care Team Providers Care Paper Rewinder Operator Name Role Phone Hawa Whitmore Primary Care Physician [phone] Encounter [facility] [id number] Date(s): 06/12/24 - 06/12/24 [facility] [address], [address] [place] [address] [phone] Encounter Diagnosis Osteoarthritis of left hip(Discharge Diagnosis) - 06/12/24 Preoperative examination(Discharge Diagnosis) - 06/12/24 Major depression, recurrent, chronic(Discharge Diagnosis) - 06/12/24 Sleep apnea(Discharge Diagnosis) - 06/12/24 Hyperlipidemia(Discharge Diagnosis) - 06/12/24 Discharge Disposition: Home or Self Care Attending Physician: HALEY Whitmore Jessica A Referring Physician: MD Karl, Mohan Farah Allergies, Adverse Reactions, Alerts Substance Criticality Severity Reaction Reaction Severity Status Celebrex rash Active Assessment and Plan Extracted from: Title:pre op Author:HALEY Whitmore Jessica A Date:06/12/24 1.Preoperative examination Shyanne been medically optimized for upcoming left total hiparthroplastythat is scheduled for 06/18/2024with Dr. Mohan Barajas of [facility] medicine to be completed at [facility]. Geogre revised cardiac risk index is estimated to be ~0.4-0.5% of cardiac complications (sudden , HI, cardiac arrest, ventricular fibrillation, heart block and pulmonary edema). Preoperative EKG(no ST or Twave changes) completed at [facility],PT/PTT/INR,CMP and CBC were reviewed and unremarkable. 2.Osteoarthritis of left hip Osteoarthritis of the left hip is chronic and uncontrolled. Goal is improvement in pain and quality of life. Patient is scheduled for left total hip arthroplastynext week as planned. As above in #1. 3.Major depression, recurrent, chronic Chronic, mild and recurrent major depressive disorder is well-controlled. Continue Abilify 2 mg, 1 tab p.o. daily. Follow-up again in 6 months and sooner if needed. Goal is continued partial to full remission of symptoms. 4.Sleep apnea Obstructive sleep apnea is chronic and well-controlled with the use of CPAP device. To continue usingCPAPdaily during sleeping hours. Goal AHI is <5. No compliance report was available for review today, butpatient believes AHI is at goal. 5.Hyperlipidemia Hyperlipidemia is chronic and well-controlled with atorvastatin 20 mg, 1 tab p.o. daily. Goal LDL is <100. Labs reviewed from November 2023 that show LDL of 71. Continue current regimen and follow-up again in 6 months. Time spent on pre-visit plannin minutes Face to face time spent w/ patient: 20 minutes Time spent documenting pertinent clinical information into the EMR: 14minutes Total time: 39 minutes Immunizations Given and Recorded Vaccine Date Status Refusal Reason zoster vaccine, inactivated 1 08/24/22 Recorded zoster vaccine, inactivated 2 06/20/22 Recorded SARS-CoV-2 mRNA ([id number]) 3 06/20/22 Recorded SARS-CoV-2 (COVID-19) mRNA BNT-162b2 [...] Comment: 2022-10-29: Historical information-source unspecified 7Result Comment: [facility]..LOT# [id number], SANOFI-PASTEUR, EXP 05/24/2021- [address] 8Result Comment: 2022-10-29: Historical information-source unspecified 9Result Comment: 2022-10-29: Historical information-source unspecified Medications ARIPiprazole 2 mg oral tablet Start: 05/29/24 11:42:00 AM EDT, 1 tab, PO, Daily, Disp# 90 tab, Refills: 0, Pharmacy: [facility] Start Date: 05/29/24 Status: Ordered atorvastatin 20 mg oral tablet Start: 02/19/24 7:45:00 AM EDT, 1 tab, PO, Daily, Disp# 90 tab, Refills: 3, Pharmacy: [facility] Start Date: 02/19/24 Status: Ordered DULoxetine 30 mg oral delayed release capsule Start: 11/11/23 2:22:00 PM EST, 1 cap, PO, Daily, Disp# 90 cap, Refills: 3, Pharmacy: [facility] Start Date: 11/11/23 Status: Ordered emtricitabine-tenofovir disoproxil 200 mg-300 mg oral tablet Start: 02/05/24 11:51:00 AM EDT, 1 tab, PO, Daily, Disp# 90 tab, Refills: 3, Pharmacy: [facility] Start Date: 02/05/24 Status: Ordered erythromycin 0.5% ophthalmic ointment Start: 12/06/23 12:00:00 PM EST, 0.5 inch, left eye, qid, Disp# 3.5 g, Pharmacy: [id number] Start Date: 12/06/23 Stop Date: 12/16/23 Status: Ordered Euflexxa 10 mg/mL intra-articular solution Start: 10/11/23 4:39:00 PM EST, 20 mg =, intra-articular, q7days, Disp# 6 mL, Refills: 3, 3 syringes for L hip. Please ship to physician's office: Rahul0 Lazarus Jones. [address] [place] [address], Note to Pharmacy: Left hip pain M16.12, Pharmacy: [facility] Start Date: 10/11/23 Stop Date: 01/03/24 Status: Ordered Lyrica 100 mg oral capsule Start: 05/29/24 11:42:00 AM EDT, 1 cap, PO, tid, Disp# 270 cap, Refills: 0, [facility]: [facility] Start Date: 05/29/24 Stop Date: 08/27/24 [...] SEXUAL ACTIVITY NEEDED FOR ERECTILE DYSFUNCTION, [facility]acy: [facility] Start Date: 02/05/24 Status: Ordered traMADol 50 mg oral tablet Start: 04/16/23 10:29:00 AM EDT, 1 tab, PO, q6h, Disp# 120 tab, PRN: as needed for pain, Pharmacy: [facility] #[id number] Start Date: 04/16/23 Stop Date: 05/16/23 Status: Ordered Mental Status 06/12/24 Barriers to Learning one year None evide nt Mandatory Health Literacy Documentation Yes Health Literacy Communication Barriers N ever Primary Language Sami Problem List Condition Confirmation Course Effective Dates [...] Informant Osteoarthritis of left hip Discharge Diagnosis 06/12/24 Non-Specified Preoperative examination Discharge Diagnosis 06/12/24 Non-Specified Sleep apnea Discharge Diagnosis 06/12/24 Non-Specified Major depression, recurrent, chronic Discharge Diagnosis 06/12/24 Non-Specified Hyperlipidemia Discharge Diagnosis 06/12/24 Non-Specified Procedures Procedure Date Related Diagnosis Body Site [...] removed Comp leted 1UOC 2UOC 3UOC 4[facility] Caudal epidural steroid injection 5COLO to cecum, [...] special stain was performed on a account executive sales representative section block b at [facility] to evaluate for the presence of spirochetes [...] IMPRESSION: Normal renal ultrasound. No hydronephrosis. 10[facility] 1. Lumbar laminotomy L5-S1 on the right with excision of herniated free fragments 11[facility] Impression: 1. There is a disc herniation eccentric to the right at L5-S1. This impinges on the transiting right-sided nerve roots, and also mildly effaces te right anterior aspect of the thecal sac 2. Moderate spondylotic change at L4-L5 3. Degenerative disc disease with significant endplate edema at L4-L5 4. No destructive bony lesion is identified 12[facility] Right paramedian L5 -S1 13[facility] Impression: 1. Comminuted fracture distal phalanx left third finger. No evidence of dislocation , 04/2010 15November 2010October 2012 Vital Signs Most recent to oldest [Reference Range]: 1 Patient Weight 88.2 kg (06/12/24 3:27 PM) Temperature [36.5-37.9 DegC] 37 DegC (06/12/24 3:27 PM) Heart Rate 76 bpm (06/12/24 3:27 PM) Respiratory Rate 16 br/min (06/12/24 3:27 PM) Blood Pressure 102/66mmHg (06/12/24 3:27 PM) Cuff Pulse Pressure 36 mmHg (06/12/24 3:27 PM) BP Location # 1 Left Arm, Manual (06/12/24 3:27 PM) Social History Social History Type Response Smoking Status Never smoked cigaret wes Sex Male [facility] Note * HALEY Whitmore, Hawa Cade: PERFORM Event Display: [facility] Note Authored Date: Chief Complaint Pre-op for left hip surgery History of Present Illness Kris presents for preoperative evaluation and consultation at the request of Dr. Mohan Lux [facility] prior to having left total hip arthroplasty for osteoarthritis of theleft hip. This procedure is scheduled for 06/18/24at [facility].He has a significant past medical historyof hyperlipidemia, obstructive sleep apnea, mild, major depressive disorder and osteoarthritis of the left hip as mentioned. Lastclinic note was reviewed today. Chronic left hip pain secondary to osteoarthritis and history of femoral acetabular impingement syndrome hasworsened over time.Continues to follow with [facility] medicine. He has had persistent pain despite corticosteroid injections, taking oral anti-inflammatories as neededand chr onic use of duloxetine 30 mg daily and pregabalin 100 mg TID.He has tried increasing dose of duloxetine, but has side effects. Interested in trying Mobic again that he took in the past. Scheduled for left total hip arthroplasty asabove. Hyperlipidemia is chronicand remains stablew/ mg daily.Lipid profile in November 2023 showed LDL of 71.Drinks EtOH socially. No tobacco use.Uses marijuana a few times per week. Exercises 5- 6 times per week doing aerobic exercise and resistance machine.NoPMH of TIA/CVA, CADor PVD.No claudication, chest pain, SOB, palpitations, tachycardia, dizziness, lightheadedness, weakness, near syncope, syncope, nausea, vomiting, diarrhea, constipation, cough, LE edema, headaches, blurred vision, loss of vision, confusion or epistaxis. Chronic GLORIA is stable with use of auto titratingCPAP that he wears nightly. Rarely falls asleep without it.DMEprovideris [facility].Getting 6-7 hours/sleep/night.but if hedoes not wear his CPAP formore than half of the nighthe feels much more drowsyand has difficulty functioning. History of UPPP. Mild depression asoverall stable with Abilify 2 mg daily. Feels like mood swings and irritability have been less, buthas come to the realization may be making his mood blunted. He would like to try tapering off the medication, but plans to wait until spring. No thoughts of self-harm, SI or HI. Has good support system. NoPMH of diabetes, CKD, thyroid disease, blood clots, hemophilia, cardiac arrhythmias, CAD, TIA/CVA or PVD. Review of Systems ROS:All other systems negative, except HPI. Physical Exam Vitals & Measurements T:37C HR:76(Monitored) RR:16 BP:102/66 SpO2:99% WT:88.200kg(Dosing) WT:88.2kg PHQ2 Data(Data Documented on:06/12/2024 15:27) Emotional health assessment NEGATIVE General: Alert and oriented, No acute distress.Pleasant. Eye: Pupils are equal, round and reactive to light, Extraocular movements are intact, Normal conjunctiva. HENT: Normocephalic. TMs clear bilaterally. Posterior pharynx is pink. Uvula rises midline. No drooling, stridor or cyanosis. Neck: Supple, No lymphadenopathy, No thyromegaly. No audible carotid bruit. Respiratory: Lungs are clear to auscultation, Respirations are non-labored, Breath sounds are equal, Symmetrical chest wall expansion. Cardiovascular: Normal rate, Regular rhythm, No murmur, No gallop, Good pulses equal in all extremities, Normal peripheral perfusion. No LE edema. Abdomen: Normoactive BS x 4. Soft. No tenderness, palpable masses or organomegaly. Lymphatics: No submandibular, anterior or posterior cervical adenopathy palpable. Musculoskeletal Normal gait. FROM and 5/5 strength at BLE and BUE. Integumentary: Warm, [place], No pallor. Neurologic: Alert, Oriented, Cranial Nerves II-XII are grossly intact. Cognition and Speech: Oriented, Speech clear and coherent, Functional cognition intact. Psychiatric: Cooperative, Appropriate mood & affect, Normal judgment, Nonsuicidal. Assessment/Plan 1.Preoperative examination Kirshas been medically optimized for upcoming left total hiparthroplastythat is scheduled for 06/18/2024with Dr. Mohan Barajas of [facility] sports medicine to be completed at [facility]. George revised cardiac risk index is estimated to be ~0.4-0.5% of cardiac complications (sudden , HI, cardiac arrest, ventricular fibrillation, heart block and pulmonary edema). Preoperative EKG(no ST or Twave changes) completed at [facility],PT/PTT/INR,CMP and CBC were reviewed and unremarkable. 2.Osteoarthritis of left hip Osteoarthritis of the left hip is chronic and uncontrolled. Goal is improvement in pain and quality of life. Patient is scheduled for left total hip arthroplastynext week as planned. As above in #1. 3.Major depression, recurrent, chronic Chronic, mild and recurrent major depressive disorder is well-controlled. Continue Abilify 2 mg, 1 tab p.o. daily. Follow-up again in 6 months and sooner if needed. Goal is continued partial to full remission of symptoms. 4.Sleep apnea Obstructive sleep apnea is chronic and well-controlled with the use of CPAP device. To continueusingCPAPdaily during sleeping hours. Goal AHI is <5. No compliance report was availablefor review today, butpatient believes AHI is at goal. 5.Hyperlipidemia Hyperlipidemia is chronic and well-controlled with atorvastatin 20 mg, 1 tab p.o. daily. Goal LDL is <100. Labs reviewed from November 2023 that show LDL of 71. Continue current regimen andfollow-up again in 6 months. Time spent on pre-visit plannin minutes Face to face time spent w/ patient: 20 minutes Time spent documenting pertinent clinical information into the EMR: 14minutes Total time: 39 minutes Problem List/Past Medical History Ongoing Backache Buttock pain Decreased libido Femoral acetabular impingement Fibromyositis Hip pain Hip pain History of laminectomy Hyperlipidemia Leg numbness Lumbar disc disease Major depression, recurrent, chronic Right sacral radiculopathy Sleep apnea Weight disorder Resolved Routine adult health maintenance Procedure/Surgical History Lumbar epidural injection| Service Date: 03/26/2023Lumbar epidural steroid injection| ServiceDate: 08/29/2022Injection of sacroiliac joint using fluoroscopic guidance| Service Date: 07/12/2022Epidural steroid injection| Service Date: 05/31/2022olonoscopy| Service Date: 12/22/2021Epidural steroid injection| Service Date: 10/25/2021Hearing examination| Service Date: 09/13/2021Ultrasound| Service Date: 06/26/2021aminotomy| Service Date: 04/07/2021MRI of lumbar spine| Service Date: 03/27/2021umbar epidural steroid injection| Service Date: 05/26/2018X-ray ofleft fingers| Service Date: 02/10/2017Septoplasty| Service Date: 2001Epidural injection x2U PPPsinus surgerywisdom teeth removedLeft hip surgery Medications ARIPiprazole(ARIPiprazole 2 mg oral tablet), 1 tab, PO, Daily atorvastatin(atorvastatin 20 mg oral tablet), 1 tab, PO, Daily DULoxetine(DULoxetine 30 mg oral delayed release capsule), 30 mg= 1 cap, PO, Daily, 3 refills emtricitabine-tenofovir(emtricitabine-tenofovir disoproxil 200 mg-300 mg oral tablet), 1 tab, PO, Daily erythromycin ophthalmic(erythromycin 0.5% ophthalmic ointment), 0.5 inch, left eye, qid meloxicam(meloxicam 15 mg oral tablet), 1 tab, PO, Daily pregabalin(Lyrica 100 mg oral capsule), 100 mg= 1 cap, PO, tid sildenafil(sildenafil 100 mg oral tablet), See Instructions sodium hyaluronate(Euflexxa 10 mg/mL intra-articular solution), 20 mg, intra- articular, q7days, 3 refills traMADol(traMADol 50 mg oral tablet), 50 mg= 1 tab, PO, q6h, PRN Allergies Celebrexrash Social History Smoking Status Never smoked cigarettes Alcohol - Denies Alcohol Use Employment/School Status:Employed 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 Exercise Duration (average number of minutes):30 Times per week:3-4 times/week Exercise type:Aerobics, Weight lifting Home/Environment Lives with:Alone Living situation:Home/Independent Feels unsafe at home:No - Comments: Home has smoke detectors. Wears seltbelt. Wears sunscreen "sometimes." Nutrition/Health Diet description:Doesn't eat much meat. Type of diet:Regular Caffeine intake amount:2-3 cups of caffinated coffee/day. Other - No Risk - Comments: Has not had a blood tranfusion. No tattoos. No long-term time. Sexual Sexually active:Yes Self described orientation:Lesbian, hairston or homosexual Uses condoms:No Substance Abuse - Denies Substance Abuse Tobacco - Denies Tobacco Use Family History Bipolar disorder: Father. High Blood Pressure: Father. Hyperlipidemia: Mother and Brother. Hypertension: Brother. Kidney disease: Father. Liver cancer: PGM. Health Status Family Member(s) Immunizations Vaccine Date Status zoster vaccine, inactivated 08/24/2022 Recorded Comments : 2022-10-29: Historical information-source unspecified zoster vaccine, inactivated 06/20/2022 Recorded Comments : 2022-10-29: Historical information-source unspecified SARS-CoV-2 mRNA ([id number]) 06/20/2022 Recorded Comments : 2022-10-29: Historical information-source unspecified SARS-CoV-2 (COVID-19) mRNA BNT-162b2 vax 09/28/2021 Recorded Comments : 2022-10-29: Historical information-source unspecified SARS-CoV-2 (COVID-19) mRNA BNT-162b2 vax 03/10/2021 Recorded Comments : 2022-10-29: Historical information-source unspecified SARS-CoV-2 (COVID-19) mRNA BNT-162b2 vax 2021 Recorded Comments : 2022-10-29: Historical information-source unspecified influenza virus vaccine, inactivated 09/01/2020 Recorded Comments : [facility]LOT# [id number], SANOFI-PASTEUR, EXP 05/24/2021-[address] influenza virus vaccine, inactivated 08/12/2017 Given tetanus/diphtheria/pertuss, acel (Tdap) 02/10/2017 Recorded Comments : 2022-10-29: Historical information-source unspecified diphtheria/pertussis, whole cell/tetanus 02/10/2017 Recorded Comments : 2022-10-29: Historical information-source unspecified influenza virus vaccine, inactivated 09/28/2016 Given influenza virus vaccine, inactivated 08/30/2015 Given tetanus/diphtheria/pertuss, acel (Tdap) 07/21/2014 Given influenza virus vaccine, inactivated 08/10/2010 Recorded Recommendations Health Maintenance Pending(in the next year) Due Adult Influenza Vaccine due05/24/24and every 1year Adult Social Determinants of Health Screening due06/14/24Unknown Frequency Due In Future Body Mass Index not due until06/13/25and every 366day Satisfied(in the past 1 year) Satisfied Body Mass Index on06/02/24.Satisfied by GINI Yanes Natasha Hepatitis C Screening on06/27/23.Satisfied by Contributor_system, [email or web address] Lab Results Test Name Test Result Date/Time Na-Quest 144 mmol/L 12/06/2023 12:17 EST K-Quest 4.4 mmol/L 12/06/2023 12:17 EST Cl-Quest 108 mmol/L 12/06/2023 12:17 EST CO2-Quest 28 mmol/L 12/06/2023 12:17 EST BUN-Quest 13 zzzmg/dL 12/06/2023 12:17 EST Creatinine-Quest 1.28 zzzmg/dL 12/06/2023 12:17 EST BUN/Creat Ratio-Quest SEE NOTE: 12/06/2023 12:17 EST Ca-Quest 9.7 zzzmg/dL 12/06/2023 12:17 EST eGFR-QST 68 mL/min/1.73m2 12/06/2023 12:17 EST Glucose-Qst 95 zzzmg/dL 12/06/2023 12:17 EST ALT 21 U/L 12/06/2023 12:17 EST Bilirubin, Total (QST) 1.6 zzzmg/dL 12/06/2023 12:17 EST Alkaline Phosphatase (ALP) 44 U/L 12/06/2023 12:17 EST AST 23 U/L 12/06/2023 12:17 EST Hepatitis C Antibody-QST NON-REACTIVE 12/06/2023 12:17 EST Albumin, Serum 4.7 g/dL 12/06/2023 12:17 EST A/G Ratio-Quest 2.4 (calc) 12/06/2023 12:17 EST Globulin-Quest 2.0 g/dL (calc) 12/06/2023 12:17 EST Cholesterol-QST 133 zzzmg/dL 12/06/2023 12:17 EST HDL Chol-QST 47 zzzmg/dL 12/06/2023 12:17 EST Non HDL Chol-QST 86 mg/dL (calc) 12/06/2023 12:17 EST Chol/HDLC Ratio-QST 2.8 (calc) 12/06/2023 12:17 EST Triglycerides-QST 74 zzzmg/dL 12/06/2023 12:17 EST LDL Chol-QST 71 mg/dL (calc) 12/06/2023 12:17 EST TSH (QST) 0.87 mIU/L 12/06/2023 12:17 EST PSA, Total (QST) 0.88 ng/mL 12/06/2023 12:17 EST Total Protein-QST 6.7 g/dL 12/06/2023 12:17 EST FTA-ABS Nonreactive 02/19/2024 07:09 EDT FTA-ABS Nonreactive 12/06/2023 12:17 EST HIV Ag/Ab, 4Th Gen NON-REACTIVE 02/19/2024 07:09 EDT HIV Ag/Ab, 4Th Gen NON-REACTIVE 12/06/2023 12:17 EST Patient Care team information Care Team Personnel Name: HALEY Whitmore, Hawa Cade Position: Physician Asst Kang - Family Med Member Role: Primary Care Provider Address: Address: [address] [place] [address] [address] [place] [address] [place] Care Team Related Persons Name: KYRA TERAN Address: home [address], [place] [id number]
[2024-06-18] MEDS ORDERED: fentaNYL citrate PF 100 MCG/2 ML VIAL ONE (08:04)
[2024-06-18] MEDS ORDERED: MIDAZOLAM HCL 1 MG/ML 2ML VIAL ONE (08:04)
[2024-06-18] MEDS ORDERED: PROPOFOL IV EMULSION 10 MG/ML 20 ML VIAL IV ONE (08:07)
[2024-06-18] MEDS ORDERED: ONDANSETRON INJ 2 MG/ML 2 ML VIAL ONE (08:07)
[2024-06-18] MEDS ORDERED: LIDOCAINE 2% 2 ML VIAL/AMP(20MG/ML) INFIL ONE (08:07)
--- NOTE | 2024-06-18 08:32 | Operative Report ---
Post Operative Report Pre & Post Diagnosis Operation Date: 06/18/24 07:00 Pre-Op Diagnosis: Left Hip Osteoarthritis Post-Op Diagnosis: Left Hip Osteoarthritis I identified the patient and participated in the time-out.: Yes Procedure Operation Date: 06/18/24 07:00 Actual Procedures p Left Total Hip Arthroplasty(Left) - Mohan Barajas MD Surgeon Mohan Barajas MD Medical Data Entry Clerk Tania Hernandez MD and Claribel Lim PA-C. Estimated Blood Loss 200 Findings Consistent with Post-Op Diagnosis Specimens left femoral head Anesthesia Type Spinal MAC Complications none Disposition Disposition: Recovery Room Indications 54-year-old male, with left hip pain refractory to conservative management. He has previously undergone a hip arthroscopy many years ago. Unfortunately this failed to relieve his symptoms. X-rays demonstrate a misshapened femoral head. MRI showed chondromalacia and osteoarthritis. I had a long discussion with him about the risks and benefits of surgery, alternatives to surgery, and expected outcomes. After reviewing all these he elected to proceed with surgery. All questions were answered. Informed consent was signed. Description of Procedure Patient was identified in the preoperative holding area where the surgical site, left hip, was marked. A spinal anesthetic was placed, then the patient was brought back to the main operating room, placed in the operating table and moved into the lateral decubitus position. Axillary roll was placed. All bony prominences were padded. Perioperative antibiotics and tranexamic acid 1 gram IV were administered. The operative extremity was prepped and draped in the normal sterile fashion. Prior to incision a multidisciplinary timeout was called. All in the room were in agreement. We began by making an incision for a posterior approach to the hip. We dissected down through subcutaneous tissues to the level of the fascia. The fascia was incised in line with the incision. Charnley bow was placed. Fatty tissue was reflected posteriorly off the back of the greater trochanter to expose the piriformis and short external rotators of the hip. Quadratus femoris was taken off the femur subperiosteally. The piriformis and short external rotators were dissected off the posterior aspect of the hip. A box cut was made in the capsule. Inferior hip capsule was released off the femur. The femoral head was dislocated. The femoral neck cut was made at our preoperative template. Femoral head was inspected and there was cartilage severe damage to the superior femoral head, about 3 cm in diameter. The acetabulum was then exposed. The labrum was sharply excised. Contents of the cotyloid fossa were removed with electrocautery. We then began reaming at a size 8 mm less than our preoperative template. We reamed up by [address] the way up to a size 56 mm cup. This gave us good bleeding cancellus bone circumferentially. The acetabulum was then irrigated out and dried. The real Brandon Gription cup was then impacted down into position with 45 degrees of lateral opening and 25 degrees of anteversion. A single cancellous bone screw was placed up into the ilium. Excellent fixation was obtained. A trial liner for a 36 mm femoral head was then placed. Next we turned our attention to the femur. The lateral neck was removed with a box osteotome. Intramedullary guide was used to establish the intramedullary canal. We then broached all the way up to a size 5. We began trialing with a standard offset neck and a +5 head. Hip was reduced. Leg lengths were symmetr ic. The hip was stable in extension and external rotation, and stable in the sleeper position. At 90 degrees of hip flexion the hip could be internally rotated 55 degrees before levering out of the cup. I was very happy with the stability exam. Therefore the hip was dislocated and the femoral trial was removed. The acetabulum was re-exposed, and the trial liner was removed. Weston hole eliminator screw was placed. An Altrx polyethylene liner for a 36 mm femoral head was then impacted into the shell. The locking mechanism was checked to ensure that it had engaged which it had. The femur was re-exposed. The femoral canal was irrigated and dried. The real Actis femoral stem was opened up. This was impacted down into position. The femoral head was opened up and gently impacted down onto the trunnion. The hip was atraumatically reduced. Another 1 gram of IV tranexamic acid was started prior to closure. The wound was irrigated out with sterile Betadine solution. The periarticular injection cocktail was then placed. The short external rotators, piriformis, and posterior capsule were repaired through drill holes in the greater trochanter using #2 Vicryl. The fascia was run with a looped #1 PDS. The subcutaneous layer was closed with #1 PDS. The dermal layer was closed with 2-0 Vicryl. Zip line was used for the skin followed by a Silverlon dressing. A compressive dressing was then placed. The patient was then rolled supine. Leg lengths were rechecked and were symmetric. An abduction pillow was placed. Sedation was lifted and the patient was transferred to the recovery room in stable condition. Summary of implants: Depuy Brandon Gription Acetabular Shell Sector Cup, 56 mm outer diameter Brandon Cancellous bone screw, 6.5 x 40 mm Weston hole eliminator Brandon Altrx Polyethylene Acetabular Liner, Neutral, with a 36 mm inner diameter DePuy Actis collared cementless Femoral stem, 12/14 taper, size 5 standard offset 36 mm ceramic femoral head with +5 offset Postoperative course: Patient will be admitted overnight from the recovery room. Patient will be weightbearing as tolerated with posterior hip precautions. Aspirin for DVT prophylaxis I attest to the content of the Intraoperative Record and any orders documented therein. Any exceptions are noted below.
--- NOTE | 2024-06-18 08:47 | Operative Report ---
Post Operative Report Pre & Post Diagnosis Operation Date: 06/18/24 07:00 Pre-Op Diagnosis: Left Hip Osteoarthritis Post-Op Diagnosis: Left Hip Osteoarthritis I identified the patient and participated in the time-out.: Yes Procedure Operation Date: 06/18/24 07:00 Actual Procedures p Left Total Hip Arthroplasty(Left) - Mohan Barajas MD Surgeon Mohan Barajas MD Bleacher Operator Tania Hernandez MD and Claribel Lim PA-C. Estimated Blood Loss 200 Findings Consistent with Post-Op Diagnosis Same as postoperative diagnosis. Specimens The resected head of Left femur and portions of the Left femoral neck. Description of Procedure Please see detailed operative note. I attest to the content of the Intraoperative Record and any orders documented therein. Any exceptions are noted below.
--- NOTE | 2024-06-18 08:47 | Operative Report ---
Post Operative Report Pre & Post Diagnosis Operation Date: 06/18/24 07:00 Pre-Op Diagnosis: Left Hip Osteoarthritis Post-Op Diagnosis: Left Hip Osteoarthritis I identified the patient and participated in the time-out.: Yes Procedure Operation Date: 06/18/24 07:00 Actual Procedures p Left Total Hip Arthroplasty(Left) - Mohan Barajas MD Surgeon Claribel Lim PA-C Extrusion Engineer Tania Hernandez MD and Claribel Lim PA-C. Estimated Blood Loss 200 Findings Consistent with Post-Op Diagnosis Specimens bone and soft tissue Anesthesia Type Spinal MAC Description of Procedure Patient was taken to the operating room, placed under spinal anesthesia with sedation. Time out performed, prepped and draped in routine sterile fashion. He was given 2gm IV Ancef for surgical prophylaxis and 1 gm IV TXA preoperatively for bleeding prophylaxis. I was present during the entire case, please see Dr. Barajas's operative report for further detail. I assisted with positioning, exposure, tissue retraction, hemostasis, trialing of implants, implantation of hardware, closure and dressings. Patient was awakened and taken to the recovery room in stable condition. I attest to the content of the Intraoperative Record and any orders documented therein. Any exceptions are noted below.
[2024-06-18] MEDS ORDERED: MAGNESIUM HYDROXIDE SUSP 30 ML UDC PO PRN (09:48)
[2024-06-18] MEDS ORDERED: HYDROmorphone INJ 1 MG/ML SYRINGE IV PRN (09:48)
[2024-06-18] MEDS ORDERED: METOCLOPRAMIDE HCL INJ 5 MG/ML 2 ML VIAL IV PRN (09:48)
[2024-06-18] MEDS ORDERED: NON-FORMULARY MEDICATION (Multivitamin Tablet) PO SCH (09:48)
[2024-06-18] MEDS ORDERED: diphenhydrAMINE 50 MG/ML VIAL IV PRN (09:48)
[2024-06-18] MEDS ORDERED: bisacodyL 10 MG SUPP PR PRN (09:48)
[2024-06-18] MEDS ORDERED: ALUMINUM/MAGNESIUM SUSP 30 ML UDC PO PRN (09:48)
[2024-06-18] MEDS ORDERED: NALOXONE HCL 0.4 MG/1 ML VIAL/CARP IV PRN (09:48)
--- NOTE | 2024-06-18 10:53 | Anesthesiology Progress Note ---
Date of Service June 18, 2024 Anesthesia Post Procedure Vital Signs Vital Signs: Temp Pulse Pulse Resp BP Pulse Ox O2 Del Method 06/18/24 10:49 70 16 93/50 L 97 Room Air 06/18/24 10:15 62 16 105/65 96 Room Air 06/18/24 09:45 36.3 C L 59 L 16 100/63 96 Room Air 06/18/24 09:30 64 16 107/57 L 95 Room Air 06/18/24 09:20 36.4 C L 61 14 101/56 L 95 Room Air 06/18/24 09:10 76 16 104/61 96 Room Air 06/18/24 09:00 62 16 98/60 L 97 Oxymask 06/18/24 08:50 68 14 103/57 L 97 Oxymask 06/18/24 08:44 36.0 C L 71 12 101/57 L 96 Oxymask 06/18/24 05:42 36.9 C 70 18 115/75 97 Room Air O2 Flow Rate 06/18/24 10:49 06/18/24 10:15 06/18/24 09:45 06/18/24 09:30 06/18/24 09:20 06/18/24 09:10 06/18/24 09:00 4 06/18/24 08:50 4 06/18/24 08:44 6 06/18/24 05:42 Pain Intensity Left Buttock: Pain Intensity: 4 Transfer of Care Handoff Completed per policy Notes Mental Status: alert / awake / arousable and participated in evaluation Patient Amnestic to Procedure: Yes Nausea / Vomiting: adequately controlled Pain: adequately controlled Airway Patency, RR, SpO2: stable & adequate BP & HR: stable & adequate Hydration State: stable & adequate Neuraxial Anesthesia: was administered and sensory block is resolving Anesthetic Complications: no major complications apparent and Pt Satisfied with anesthetic care
[2024-06-18] MEDS: SODIUM CHLORIDE 0.9% 1,000 ML IV SCH (10:59)
[2024-06-18] MEDS: CYANOCOBALAMIN (B-12) 500 MCG TABLET PO SCH (11:04)
[2024-06-18] MEDS: ATORVASTATIN 20 MG TAB PO SCH (11:04)
[2024-06-18] MEDS: CHOLECALCIFEROL 25 MCG (1000 UNITS) TAB PO SCH (11:04)
[2024-06-18] MEDS: DULoxetine HCL 30 MG CAP PO SCH (11:04)
[2024-06-18] MEDS: DOCUSATE SODIUM 100 MG CAP PO SCH (11:04)
[2024-06-18] MEDS: MULTIVITAMIN TAB PO SCH (11:04)
[2024-06-18] MEDS: PREGABALIN 100 MG CAP PO SCH (11:07)
[2024-06-18] MEDS: oxyCODONE HCL IR 5 MG TAB (IMMEDIATE RELEASE) PO PRN (11:53)
--- NOTE | 2024-06-18 12:29 | XRay Report ---
XR hip 1V LT w pelvis CLINICAL HISTORY: IN PACU - Post Surgical TECHNIQUE: 1 view of the left hip and single frontal view of the pelvis were obtained. Comparison: Comparison is made to pelvis radiograph 06/02/2024 FINDINGS: Patient is status post total hip arthroplasty with expected postsurgical changes including soft tissu e swelling and subcutaneous emphysema IMPRESSION: Expected postoperative appearance status post placement of total hip arthroplasty. ACT 112: Negative or not required by law. Electronically signed by: Tez Yusuf M.D. 06/18/2024 12:28 PM
[2024-06-18] MEDS: HYDROmorphone INJ 0.5 MG/0.5 ML SYR IV PRN (15:15)
[2024-06-18] MEDS: Scopolamine CHECK PATCH PLACEMENT SCH (15:16)
[2024-06-18] MEDS: TRANEXAMIC ACID 1,000 MG **IV Intra-op IV SCH (18:22)
[2024-06-18] MEDS: SENNA 8.6 MG TAB PO SCH (21:08)
[2024-06-18] MEDS: ASPIRIN 81 MG ECTAB PO SCH (21:09)
[2024-06-18] MEDS: ARIPIprazole 1 MG/ML ORAL SOLN 150 ML BTL PO SCH (21:10)
[2024-06-18] MEDS: PNEUMOCOCCAL VACCINE (PCV20) 20-VAL CONJ-DIP CRM/PF 0.5 ML SYR IM ONE (21:12)
[2024-06-19 07:25] LABS: Basophils # (auto) 0.02 K/uL (0.00-0.20); Basophils % (auto) 0.1 %; Eosinophils # (auto) 0.02 K/uL (0.00-0.50); Eosinophils % (auto) 0.1 %; Hematocrit (blood only) 38.4 % (42.0-52.0); Hemoglobin 12.7 g/dl (14.0-18.0); Immature Granulocytes # (auto) 0.08 K/uL (0.01-0.20); Immature Granulocytes % (auto) 0.6 %; Lymphocytes # (auto) 1.51 K/uL (1.20-3.40); Lymphocytes % (auto) 10.8 %; Mean Corpuscular Hemoglobin 30.5 pg (25.0-34.0); Mean Corpuscular Hgb Conc 33.1 g/dL (32.0-36.0); Mean Corpuscular Volume 92.3 fL (80.0-100.0); Mean Platelet Volume 11.4 fL (9.4-12.4); Monocytes # (auto) 1.26 K/uL (0.11-0.59); Neutrophils # (auto) 11.15 K/uL (1.40-6.50); Neutrophils % (auto) 79.4 %; Platelet Count 133 K/uL (130-400); RDW Coefficient of Variation 13.5 % (11.5-14.5); RDW Standard Deviation 45.7 fL (36.4-46.3); Red Blood Count 4.16 M/uL (4.70-6.10); White Blood Count 14.04 K/ul (4.8-10.8)
[2024-06-19 07:49] LABS: BUN Creatinine Ratio 16.7 (10-20); Calcium 8.6 mg/dl (8.6-10.3); Creatinine Clr Calc Pharmacy 83.7 ml/min; Est GFR (African American) 80.1 ml/min; Est GFR (Non-African American) 69.1 ml/min; Potassium 3.9 mmol/L (3.5-5.1)
[2024-06-19] MEDS: dexAMETHasone 4 MG TAB PO SCH (08:03)
--- NOTE | 2024-06-19 09:20 | Orthopedic Progress Note ---
Date of Service June 19, 2024 Assessment & Plan (1) S/P total left hip arthroplasty: Plan: The patient was educated regarding today's findings. Conservative care measures were discussed. His outer dressings were removed. Inner Silverlon was left in place. He may get this wet in the shower. Avoid scrubbing. Avoid soaking. Follow-up in the office in 2 weeks as scheduled for Zipline removal. Weight- bear as tolerated using his walker. Ice and elevate the hip frequently to reduce pain and swelling. He will use aspirin 325 mg twice daily. Written discharge instructions were provided. Prescription for oxycodone was sent to his pharmacy. Weight-bear as tolerated using his walker. Admission and Anticipated Discharge Date Admission Date: June 18, 2024 Subjective This 54-year-old male is seen today in his room. He is 1 day status post left total hip arthroplasty. He states he is doing well. His pain is controlled. He did not sleep much last night secondary to external noise. He is hoping to be discharged to home today. He denies any numbness or tingling. No chest pain, shortness of breath, nausea, vomiting, or abdominal pain. No additional complaints. He has already finished his breakfast. Review of Systems Review of Systems: Unchanged from yesterday. Physical Exam Physical Exam: General: Well-developed, well-nourished, middle-aged male, in no acute distress. Laying in bed. Alert and oriented. Skin: Warm and dry with good turgor. Expected postoperative ecchymosis around his left hip. Postsurgical dressings are in place. Upon removal, his inner Silverlon is dry. There is no bleeding on the external dressings. There is minimal edema around the left hip. Musculoskeletal: Left hip evaluation reveals supple passive motion with discomfort with flexion as well as rotation. He has intact active knee flexion and extension as well as ankle dorsiflexion and plantarflexion. Neurologic: Gross sensation is intact across the left leg by soft touch. Peripheral pulses are 2+. Results & Data Vital Signs (Past 12 Hours) Vital Signs Temp Pulse Pulse Resp BP BP Pulse Ox 06/19/24 07:53 36.8 C 52 L 17 92/56 L 97 06/19/24 03:45 36.7 C 61 17 93/56 L 96 06/19/24 01:54 99/60 L 06/18/24 22:46 36.5 C 50 L 18 97/60 L 95 O2 Del Method 06/19/24 07:53 Room Air 06/19/24 03:45 Room Air 06/19/24 01:54 06/18/24 22:46 Room Air Laboratory Results CBC obtained this morning shows a white count of 14.04. H&H of 12.7 and 38.4. Platelets 133,000. BMP shows sodium 143, potassium 3.9, chloride 111. BUN of 20 with creatinine 1.2. Glucose 107.
--- NOTE | 2024-06-19 16:01 | Discharge Summary ---
Date of Service June 19, 2024 Admission HPI Per Admitting Provider History of Present Illness (including history relevant to procedure): This 54-year-old male presents to the clinic today for his preoperative history and physical. Patient complains of a 10-year history of left hip pain. Patient states that he has had corticosteroid injections in the hip joint, use nonsteroidal agents and done physical therapy. He states that he also had a past surgery for labral repair in the hip. He states that his symptoms persist and he has had no relief with previous interventions. Patient is electing to proceed with surgical intervention. Review Of Systems: A 12 point review systems is performed and is unremarkable except for those things stated in the HPI and past medical history. Past Medical History: Problems: Lumbar disc disease Major depression, recurrent, chronic History of laminectomy Hyperlipidemia Right sacral radiculopathy Decreased libido Leg numbness Femoral acetabular impingement Weight disorder Hip pain Hip pain Buttock pain Sleep apnea Fibromyositis Backache Procedure History Procedure Procedure Date Comments Left hip surgery - September 2011Decemb2011 wisdom teeth removed sinus surgery UPPP Epidural injection x2 - 03/2010, 04/2010 Lumbar epidural injection 03/26/2023 - [facility] Lumbar epidural steroid injection 08/29/2022 - [facility] Injection of sacroiliac joint using fluoroscopic guidance 07/12/2022 - [facility] 12/22/2021 - 12/22/21 A polyp decending colon hyperplastic polyp background intestinal spirochetosis. B polyp rectum hyperplastic polyp backgroudn intestinal spirochetosis. comment parts and b sections demonstrate fragments of colonic mucosa with histologic features consistent with hyperplastic polys and m orphologic findings of an irregular fuzzy appearing basophilic border at the surface of the colonic epithelial cells. a warthin-starry special stain was performed on a compliance representative dealer section block b at [facility] to evaluate for the presence of spirochetes and is positive confirming the diagnosis of intestinal spirochetosis. most cases of intestinal spirochetosis are asymptomatic . how ever symptomatic patients. eg.those with chronic watery diarrhea abd pain. anal discharge may benefit from antimicrobial and antidiarrheal therapy. all controls stained appropriately. - COLO to cecum, DC polyp 3 mm CF, rectal polyp 2 mm CF Epidural steroid injection 10/25/2021 - [facility] EPIDURAL STEROID INJECTION WITH FLUROSCOPIC GUIDANCE [facility]/2021 [facility] AudiologyImpression:1. Bilateral clear ear canals2. Normal hearing sensitivity slopiong to a moderately severe sensorineural hearing loss bilaterally Ultrasound 06/26/2021 - RENAL ULTRASOUNDIMPRESSION: Normal renal ultrasound. No hydronephrosis. Laminotomy 04/07/2021 - [facility]. Lumbar laminotomy L5-S1 on the right with excision of herniated free fragments MRI of lumbar spine [facility] There is a disc herniation eccentric to the right at L5-S1. This impinges on the transiting right-sided nerve roots, and also mildly effaces te right anterior aspect of the thecal sac2. Moderate spondylotic change at L4-L53. Degenerative disc disease with significant endplate edema at L4-L54. No destructive bony lesion is identified Lumbar epidural steroid [facility]2018 [facility] -S1 X-[facility] of left fingers [facility]2017 [facility] Comminuted fracture distal phalanx left third finger. No evidence of dislocation Septoplasty 2001 Allergies and Sensitivities: Celebrex(rash) Current Home Meds: (Last Updated 06/02 13:00) ARIPiprazole (ARIPiprazole 2 mg oral tablet) 1 tab PO Daily DULoxetine (DULoxetine 30 mg oral delayed release capsule) 30 mg PO Daily atorvastatin (atorvastatin 20 mg oral tablet) 1 tab PO Daily emtricitabine-tenofovir (emtricitabine-tenofovir disoproxil 200 mg-300 mg oral tablet) 1 tab PO Daily erythromycin ophthalmic (erythromycin 0.5% ophthalmic ointment) 0.5 inch left eye qid meloxicam (meloxicam 15 mg oral tablet) 1 tab PO Daily pregabalin (Lyrica 100 mg oral capsule) 100 mg PO tid sildenafil (sildenafil 100 mg oral tablet) TAKE 1 TABLET DAILY 1 HOUR BEFORE SEXUAL ACTIVITY NEEDED FOR ERECTILE DYSFUNCTION sodium hyaluronate (Euflexxa 10 mg/mL intra-articular solution) 20 mg intra- articular q7days 3 syringes for L hip. Please ship to physician's office: Rahul0 Lazarus Jones. Dave. [address] [place] [id number] traMADol (traMADol 50 mg oral tablet) 50 mg PO q6h PRN: as needed for pain Initial Wt: 06/02 87.6 kg 193 lb Discharge Data Procedures Performed Operation Date: 06/18/24 07:00 Actual Procedures p Left Total Hip Arthroplasty(Left) - Mohan Barajas MD Hospital Course (1) S/P total left hip arthroplasty: Patient was kept in observation at [facility] after undergoing an elective left total hip arthroplasty with Dr. Barajas on June 18, 2024. His surgery was performed with spinal anesthesia and IV sedation. He tolerated the procedure well without any intraoperative complications. Preoperatively he was given 2 g of IV Ancef which was continued for 24 hours after surgery for antibiotic prophylaxis. He was also given 1 g of IV TXA preoperatively which was repeated postoperatively x 1 dose. In the recovery room he had x-rays of his left hip which showed a stable left hip arthroplasty with no evidence of fracture or hardware abnormality. Postoperatively, he was allowed out of bed, weight-bear as tolerated with the assistance of a walker. He was given an abduction pillow and was advised to keep this between his knees when in bed. He was started on aspirin 81 mg twice daily for DVT prophylaxis. He also had JOSS stockings and knee-high SCDs during his inpatient stay. His home medications were continued. Physical therapy and Occupational Therapy consult was placed. Posterior hip precautions were taught and reviewed by the therapist. Ice and elevation were recommended for swelling prevention and pain control. His vital signs remained stable. His CBC and BMP were within normal limits on postope rative day 1. On postoperative day 1 his outer pressure dressing was removed and the Silverlon was left in place and will remain in place until his first postoperative appointment as an outpatient. He was given a regular diet. He was given oxycodone, Tylenol and IV Dilaudid for use after surgery as needed for pain. He was also given dexamethasone. He did well postoperatively. He did well out of bed with the assistance of nursing as well as physical therapy. He was deemed safe for discharge to his home. He was seen by the case management and home health arrangements made been made. He was discharged to his home in stable condition on June 19, 2024. Discharge instructions were reviewed and provided.
== END 2024-06-19 10:33 | disposition home health service (06) ==
LOC: 3W 05:22 → ASU 05:22